=== PATIENT | male | born 1955 | race Caucasian/White ===

== ENCOUNTER → 2018-07-07 11:38 | Outpatient (CLI) | payer SELFPAY ==
[2018-07-07 15:31] LABS: Anion Gap 10 (5-15); BUN 17 mg/dL (7-18); BUN/Creat Ratio 19.3 RATIO (10-20); Calcium,Total 8.8 mg/dL (8.5-10.1); Chloride 102 mmol/L (98-107); Creatinine, Serum 0.88 mg/dL (0.70-1.30); EST Glomerular Filtration Rate 93 mL/min (>60); Est Glom Filt Rate - Afr Amer 112 mL/min (>60); Glucose 132 mg/dL (74-106); Sodium Level 139 mmol/L (136-145)
== END ==
PROVIDERS: Family Provider Family Medicine; PCP Family Medicine; Visit Provider Family Medicine
DX: I10 Essential (primary) hypertension (principal)
CPT/HCPCS: 36415; 80048

== ENCOUNTER 2021-12-01 13:17 | Emergency (ER) | payer MEDICARE, SELFPAY ==
[2021-12-01 13:18] VITALS: BP 239/134; PULSE 102; RESP 18; TEMP 36.6; O2SAT 96; BMI 25.7
[2021-12-01 13:34] VITALS: BP 239/134; PULSE 102; RESP 18; TEMP 36.6; O2SAT 96
--- NOTE | 2021-12-01 13:40 | RAD_ITS ---
STUDY: X-RAY - RIGHT FOOT CLINICAL: Male, 66 years old. Pain TECHNIQUE: 3 view(s) of the foot. COMPARISON: None. FINDINGS: There is a plantar calcaneal spur. Degenerative changes of the tarsal and tarsometatarsal articulations. Normal metatarsi. Normal metatarsophalangeal joint of the great toe. Normal tibial and fibular sesamoid bones. Normal interphalangeal joint of the great toe. Normal phalanges of the great toe. Normal second through fifth metatarsophalangeal joints. Normal interphalangeal joints and phalanges of the lesser toes. The soft tissue structures are unremarkable. RAD/Foot min 3 Views IMPRESSION: Degenerative arthrosis. No demonstrated acute osseous changes. Electronically Signed: Tiago Garza, at 14:47 EST ,
--- NOTE | 2021-12-01 13:53 | EDS_ITS ---
HPI <JALEN MADDOX - Last Filed: 12/01/21 16:02> History of Present Illness Chief Complaint: Lower Extremity Injury Detail of Chief Complaint: Swelling pain in my right foot Informant: patient Onset/Context/Timing Onset: Days (2) Timing: Continuous Current Severity: 02/19 Narrative Narrative: Patient presents secondary to right foot redness, swelling, and pain. Patient states he first noticed these symptoms on , two days ago. States I think I got bit by something. Patient denies fever or chills. Incidentally, the patient also is hypertensive on arrival to ED. Patient is vague concerning his adherence to his home medication for his blood pressure. He states he last took his lisinopril maybe a few days ago, last had it filled a few months ago, and last saw his PCP, Dr. Diaz, 2 years ago. He denies headache, blurred vision, nausea. Prior similar symptoms: No Recent Illness/Hospitalization: No PFSH <JALEN MADDOX - Last Filed: 12/01/21 16:02> PFSH Medical History (Updated 12/01/21 @ 15:[address] Ariadne Andrews MD) HTN (hypertension) Home Medications Azithromycin [Zithromax Z-Lev] 250 mg PO UD #1 box 06/19/14 [Rx Last Taken Unknown] lisinopril 20 mg PO BID #60 tablet 06/19/14 [Rx Last Taken Unknown] cephalexin 500 mg PO Q6 #40 cap 12/01/21 [Rx Last Taken Unknown] sulfamethoxazole-trimethoprim [Bactrim DS] 1 tab PO BID #20 tab 12/01/21 [Rx Last Taken Unknown] Allergy/AdvReac Type Severity Reaction Status Date / Time No Known Allergies Allergy Verified 12/01/21 13:21 Surgical History History of hernia repair Social History (Updated 12/01/21 @ 14:07 by JALEN MADDOX) current occupation: occasional heavy duty truck mechanic Smoking Status: Former smoker alcohol intake: never substance use type: does not use ROS <JALEN MADDOX - Last Filed: 12/01/21 16:02> ROS ED Constitutional Constitutional ED: Denies chills or fever(s) Eyes Eyes: Denies blurry vision, change in vision or diplopia ENT ENT ED: Denies ear pain or sore throat Cardiovascular Cardiovascular: Denies chest pain Respiratory/Chest Respiratory/Chest: Denies dyspnea Gastrointestinal Gastrointestinal: Denies constipation, diarrhea or nausea Genitourinary Genitourinary ED: Denies dysuria Musculoskeletal Musculoskeletal: Reports other Details: Rt foot pain and swelling, worst over the Rt MTP joint. Integumentary Reports other Details: Redness to right foot with dry, flakey skin ascending legs bilaterally. Neurologic Neurologic: Denies headache(s) or weakness EXAM <JALEN TNA - Last Filed: 12/01/21 16:02> Physical Exam Const Vital Signs: 12/01/21 13:18 12/01/21 13:34 12/01/21 14:04 Temperature 98 F 98 F Temperature Source Temporal Temporal Pulse Rate 102 H 102 H Respiratory Rate 18 18 Blood Pressure 239/134 H 239/134 H 202/116 H Blood Pressure Mean 169 169 144 Pulse Ox 96 96 Oxygen Delivery Method Room Air Room Air 12/01/21 15:13 12/01/21 15:45 Temperature Temperature Source Pulse Rate 77 Respiratory Rate 18 Blood Pressure 233/135 H 163/99 H Blood Pressure Mean 167 120 Pulse Ox 94 Oxygen Delivery Method Room Air Positive well nourished and well developed General Appearance ED: well developed HEENT Reports normocephalic and moist mucous membranes Eyes PERRL and EOMs intact bilaterally Resp normal respiratory effort Effort and Inspection: other Auscultation: wheezes lower bilaterally and posterior Cardio regular rate GI normal to inspection, nondistended, normoactive bowel sounds Extremity Right Lower Extremity: foot and digits Positive for inspection (Redness, concentrated most of MTP joint of rt great toe ascending towards ankle and across foot and into toes.), palpation (tender to palpation. ) and neurovascular exam (Sensation intact to feet B/L. 2+ tibial and dorsalis pedis pulses B/L.) Neuro oriented x3 Sensorium / Orientation: alert Sensory Exam: sensory level loss detected Psych mental status grossly normal Skin Skin Narrative: No wounds to right foot. Dry, flakey skin to B/L lower legs. <Dr. Ariadne Andrews MD - Last Filed: 12/01/21 16:00> Physical Exam Const Vital Signs: 12/01/21 13:18 12/01/21 13:34 12/01/21 14:04 Temperature 98 F 98 F Temperature Source Temporal Temporal Pulse Rate 102 H 102 H Respiratory Rate 18 18 Blood Pressure 239/134 H 239/134 H 202/116 H Blood Pressure Mean 169 169 144 Pulse Ox 96 96 Oxygen Delivery Method Room Air Room Air 12/01/21 15:13 12/01/21 15:45 Temperature Temperature Source Pulse Rate 77 Respiratory Rate 18 Blood Pressure 233/135 H 163/99 H Blood Pressure Mean 167 120 Pulse Ox 94 Oxygen Delivery Method Room Air MDM <JALEN MADDOX - Last Filed: 12/01/21 16:02> [facility] MDM Narrative Medical decision making narrative: Lab work and right foot xray ordered. Patient's home blood pressure medication ordered. Lab Data Attestation: I reviewed the patient's lab results. Labs: Laboratory Results - last 24 hr 12/01/21 12/01/21 13:59 13:59 WBC 10.4 RBC 5.01 Hgb 15.8 Hct 45.2 MCV 90.2 MCH 31.5 MCHC 35.0 RDW Std Deviation 41.4 RDW Coeff of Veness[place] 12.5 Plt Count 209 MPV 10.7 Immature Gran % (Auto) 0.400 Neut % (Auto) 71.2 H Lymph % (Auto) 13.8 L [place] % (Auto) 12.9 H Eos % (Auto) 1.1 Baso % (Auto) 0.6 Absolute Neuts (auto) 7.4 Absolute Lymphs (auto) 1.43 Nucleated RBC % 0 Sodium 136 Potassium 3.6 Chloride 101 Carbon Dioxide 27.0 Anion Gap 8 BUN 17 Creatinine 0.72 Estim Creat Clear Calc 67.02 Est GFR (MDRD) Af Amer 139 Est GFR (MDRD) Non-Af 115 BUN/Creatinine Ratio 23.5 H Glucose 107 H Uric Acid 6.7 Calcium 9.0 Radiography Diagnostic Testing: Clinical Impression(s) from Imaging Studies Foot X-Ray 12/01/21 13:40 IMPRESSION: Degenerative arthrosis. No demonstrated acute osseous changes. Electronically Signed: Tiago Garza, at 14:47 EST , Treatment and Re-Evaluation Comments:: On re-evaluation, patient is resting comfortably. Blood pressure remains elevated after oral home medication. Labetolol given and on final re- evaluation blood pressure, 160/104. Lab work is unremarkable with a WBC 10.4 and uric acid at 6.7. Right foot xray shows arthritic changes, but no acute abnormality. Patient treated with bactrim and Keflex for right foot cellulitis. Thorough discussion with patient about the importance of taking prescribed medications and follow-up with Dr. Diaz. Patient verbalizes understanding to call for follow-up appt Friday. <Dr. Ariadne Andrews MD - Last Filed: 12/01/21 16:00> [facility] Lab Data Labs: Laboratory Results - last 24 hr 12/01/21 12/01/21 13:59 13:59 WBC 10.4 RBC 5.01 Hgb 15.8 Hct 45.2 MCV 90.2 MCH 31.5 MCHC 35.0 RDW Std Deviation 41.4 RDW Coeff of Venessa 12.5 Plt Count 209 MPV 10.7 Immature Gran % (Auto) 0.400 Neut % (Auto) 71.2 H Lymph % (Auto) 13.8 L [place] % (Auto) 12.9 H Eos % (Auto) 1.1 Baso % (Auto) 0.6 Absolute Neuts (auto) 7.4 Absolute Lymphs (auto) 1.43 Nucleated RBC % 0 Sodium 136 Potassium 3.6 Chloride 101 Carbon Dioxide 27.0 Anion Gap 8 BUN 17 Creatinine 0.72 Estim Creat Clear Calc 67.02 Est GFR (MDRD) Af Amer 139 Est GFR (MDRD) Non-Af 115 BUN/Creatinine Ratio 23.5 H Glucose 107 H Uric Acid 6.7 Calcium 9.0 Radiography Diagnostic Testing: Clinical Impression(s) from Imaging Studies Foot X-Ray 12/01/21 13:40 IMPRESSION: Degenerative arthrosis. No demonstrated acute osseous changes. Electronically Signed: Tiago Garza, at 14:47 EST , Treatment and Re-Evaluation Comments:: Patient seen and evaluated with [employer] student. Patient independently evaluated and examined. Patient presents with right foot pain and erythema. No open wounds. No fever or chills. No history of gout. Patient does have significantly elevated blood pressure and does admit he did not take his blood pressure medication this morning. On further questioning he reports has not taken in several days and has not filled his prescription and approximately 6 months. Patient sitting upright in bed no acute distress. Head and neck examination unremarkable. Heart is regular rate and rhythm. Lung sounds are clear. Abdomen is soft and nontender. Right lower extremity examination reveals area of erythema centered around the first MTP joint. No open wounds. Good cap refill distally. Lab work obtained and reviewed. Labs are unremarkable. Foot x-ray reviewed by myself reveals no acute findings. Radiology to rotation also reviewed. Patient be treated with Bactrim and Keflex. He was given his lisinopril here but blood pressure remained significantly elevated in the 230s systolic. He was given 10 mg of IV labetalol and repeat blood pressure is 160/100. Patient reports he will take his blood pressure medication and track his blood pressures at home. He will follow-up with Dr. Diaz. Discharge Plan Triage Chief Complaint: Lower Extremity Injury ED Provider: Ariadne Andrews Dx/Rx/DC Orders Clinical Impression: Hypertension, Cellulitis Instructions: ED Cellulitis, ED High Blood Pressure Hypertension Prescriptions: New sulfamethoxazole-trimethoprim [Bactrim DS] 800-160 mg tablet 1 tab PO BID Qty: 20 RF: 0 cephalexin 500 mg capsule 500 mg PO Q6 Qty: 40 RF: 0 No Action lisinopril 20 MG tablet 20 mg PO BID Qty: 60 RF: 0 Azithromycin [Zithromax Z-Lev] 250 MG tablet 250 mg PO UD Qty: 1 RF: 0 Primary Care Provider: Jose Ramon Diaz Referrals: Jose Ramon Daiz MD [Primary Care Provider] - 1-2 Weeks Disposition Disposition: Home, Self Care
[2021-12-01 14:04] VITALS: BP 202/116
[2021-12-01 14:07] LABS: Absolute Lymphocyte Count 1.43 X10^3/uL (0.83-4.51); Absolute Neutrophil Count 7.4 X10^3/uL (2.0-7.7); Basophil# 0.06 X10^3/uL; Basophil% 0.6 % (0-1); Eosinophil# 0.11 X10^3/uL; Eosinophils% 1.1 % (0-5); Hematocrit 45.2 % (40-54); Hemoglobin 15.8 g/dL (13.0-16.5); Lymphocyte # 1.43 X10^3/ul (0.83-4.51); Lymphocyte % 13.8 % (19-41); Mean Corpuscular Hgb 31.5 pg (27.0-32.0); Mean Corpuscular Volume 90.2 fL (80-94); Mean Platelet Vol. 10.7 fl (6.2-12.0); Monocyte# 1.34 X10^3/uL; Monocyte% 12.9 % (0-10); NRBC Flagged by Analyzer 0 % (0-5); Neutrophil # 7.41 X10^3/uL (2.7-7.7); Neutrophil % 71.2 % (47-70); Platelet Count 209 K/mm3 (150-450); RBC Distribution Width CV 12.5 % (11.6-14.6); RBC Distribution Width SD 41.4 fl (35.1-43.9); Red Blood Count 5.01 M/mm3 (4.6-6.2); White Blood Count 10.4 K/mm3 (4.4-11.0)
[2021-12-01] MEDS: Lisinopril 20 MG Tablet PO (14:18)
[2021-12-01 14:20] LABS: Anion Gap 8 (5-15); BUN 17 mg/dL (7-18); BUN/Creat Ratio 23.5 RATIO (10-20); Chloride 101 mmol/L (98-107); Creatinine, Serum 0.72 mg/dL (0.70-1.30); EST Glomerular Filtration Rate 115 mL/min (>60); Est Glom Filt Rate - Afr Amer 139 mL/min (>60); Estimated Creatinine Clearance 67.02 ml/min; Glucose 107 mg/dL (74-106); Potassium 3.6 mmol/L (3.5-5.1); Sodium Level 136 mmol/L (136-145); Uric Acid 6.7 mg/dL (3.5-7.2)
[2021-12-01 15:13] VITALS: BP 233/135
[2021-12-01] MEDS: Cephalexin 250 MG Capsule 500 MG PO (15:17)
[2021-12-01] MEDS: Smz/Tmp Ds Tablet 1 TABLET PO (15:18)
[2021-12-01] MEDS: Labetalol (Prefilled) 20 MG/4 ML 10 MG IV (15:42)
[2021-12-01 15:45] VITALS: BP 163/99; PULSE 77; RESP 18; O2SAT 94
[2021-12-01 16:02] VITALS: BP 160/104
== END 2021-12-01 16:03 | disposition home or self-care (01) ==
PROVIDERS: Emergency Provider Emergency Medicine; PCP Family Medicine; Visit Provider Emergency Medicine
DX: L03.115 Cellulitis of right lower limb (principal); I10 Essential (primary) hypertension; Z79.899 Other long term (current) drug therapy; Z87.891 Personal history of nicotine dependence
CPT/HCPCS: 73630; 80048; 84550; 85025; 99283; A4216

== ENCOUNTER → 2022-10-02 | Outpatient (CLI) | payer MEDICARE, SELFPAY ==
--- NOTE | 2022-10-02 10:45 | RAD_ITS ---
STUDY: X-RAY CHEST REASON FOR EXAM: Male, 66 years old. sob TECHNIQUE: XR Chest 2 Views COMPARISON: 9.614 FINDINGS: There is atherosclerotic calcification of the aortic arch with tortuosity. There are diffuse degenerative changes of the visualized thoracic spine. There is degenerative osteoarthritis of the bilateral shoulders. There are bilateral infiltrates. Normal size heart. Normal mediastinum and amy. Normal visualized pulmonary arteries. There is no demonstrated abnormality of the visualized soft tissue structures of the upper abdomen. RAD/Chest PA and Lateral IMPRESSION: There is bilateral infiltrate. Electronically Signed: Jose Rosa MD at 17:14 EST ,
== END | disposition home or self-care (01) ==
PROVIDERS: PCP Family Medicine; Referring Provider Physician Assistant; Visit Provider Physician Assistant
DX: R06.02 Shortness of breath (principal)
CPT/HCPCS: 71046

== ENCOUNTER 2023-12-25 10:29 | Inpatient (IN) | payer MEDICARE, SELFPAY ==
[2023-12-25] VITALS (28 sets, daily range): BP systolic 167–206; BP diastolic 99–135; PULSE 80–101; RESP 15–22; TEMP 36.5–37.1; O2SAT 91–100; BMI 25.9; BMI 29.9
--- NOTE | 2023-12-25 10:32 | CT_ITS ---
STUDY: CT HEAD STROKE PROTOCOL W/O CONTRAST INJECTION REASON FOR EXAM: Male, 68 years old. Neuro deficit, acute, stroke suspected RADIATION DOSAGE (If Supplied By Facility): CTDIvol = ( 44.99 ) mGy, DLP = ( 846.73 ) mGycm TECHNIQUE: Transaxial CT imaging of the brain was performed without administration of intravenous contrast material. Individualized dose optimization techniques were used for this CT. COMPARISON: No relevant priors. FINDINGS: Normal soft tissue structures. Normal calvarium. There is mild cerebral atrophy with widening of the extra-axial spaces and ventricular dilatation. Focal hypodensity is seen in the insular cortex of the right temporal lobe. Tiny lacunar infarct are seen in both thalami. Age of which cannot be determined on this single examination. Normal brainstem. Normal cerebellum. There is no intracranial hemorrhage. There are no findings of an acute ischemic infarction. Suspected hyperdensity in the right middle cerebral artery. Correlation with CTA recommended. Mild mucosal thickening of the inferior aspect of the right maxillary sinus. ASPECT score: 8 CT/STROKE Brain/Head without Cont IMPRESSION: Chronic involutional changes of the brain. Focal hypodensity is seen in the insular cortex of the right temporal lobe. Findings suggestive of a hyperdense right middle cerebral artery. Correlation with CT recommended. N.B. : The above Results were Read Back by Boaz Willoughby MD to Hunter Gonzáles and understanding confirmed on 12/25/2023 10:49:21 (ET). Electronically Signed: Boaz Willoughby MD at 10:50 EDT ,
--- NOTE | 2023-12-25 10:33 | NURSING ---
NO OLD EKGS
--- NOTE | 2023-12-25 10:34 | RAD_ITS ---
STUDY: X-RAY CHEST REASON FOR EXAM: Male, 68 years old. Neuro deficit, acute, stroke suspected TECHNIQUE: Single AP portable view of the chest. COMPARISON: None. FINDINGS: EKG electrodes are seen. Mild degree of increased linear markings at the lung bases suggestive of bibasilar atelectasis. There is no demonstrated pleural abnormality. Normal size heart. Normal mediastinum and amy. Normal visualized pulmonary arteries. There is atherosclerotic calcification of the aortic arch with tortuosity. There are diffuse degenerative changes of the visualized thoracic spine. There is degenerative osteoarthritis of the bilateral shoulders. There is no demonstrated abnormality of the visualized soft tissue structures of the upper abdomen. RAD/Chest 1 View IMPRESSION: Mild degree of increased signal markings at the lung bases suggestive of bibasilar linear atelectasis. Electronically Signed: Boaz Willoughby MD at 11:23 EDT ,
--- NOTE | 2023-12-25 10:34 | CT_ITS ---
STUDY: CTA HEAD AND NECK WITH CONTRAST REASON FOR EXAM: Male, 68 years old. Neuro deficit, acute, stroke suspected RADIATION DOSAGE (If Supplied By Facility): CTDIvol = ( 21.53 ) mGy, DLP = ( 678.98 ) mGycm TECHNIQUE: CT angiography was performed with a multi-detector CT scanner. Data acquisition was obtained from the skull base through the vertex following intravenous administration of [id number] 100ML. MIP images were reconstructed from the axial data set. Post-processing of the angiographic images was performed, with multiplanar reformation and 3D reconstruction. Individualized dose optimization techniques were used for this CT. COMPARISON: No relevant priors. FINDINGS: Normal bilateral petrous carotid arteries. There is calcified plaque formation of the right cavernous carotid artery, without a cross-sectional luminal stenosis. There is calcified plaque formation of the left cavernous carotid artery, with a mild stenosis (less than 50%). Normal right A1 segments of the anterior cerebral artery. Normal left A1 segments of the anterior cerebral artery. Normal intact anterior communicating artery (ACOM). Normal bilateral A2 segments of the anterior cerebral arteries. There is evidence of atherosclerotic changes in the midportion of the right M2 segment of the middle cerebral artery with possible tiny thrombus. Decreased amount of branches seen in the sylvian fissure. Normal left M1 and M2 segments of the middle cerebral arteries, with a normal M1 bifurcation. Normal right posterior communicating artery (PCOM). Normal left posterior communicating artery (PCOM). Normal bilateral vertebral arteries. Normal basilar artery with a normal basilar bifurcation. The visualized bilateral superior cerebellar (SCA) arteries are normal. Normal bilateral P1, P2 and visualized P3 segments of the posterior cerebral arteries. There is no demonstrated aneurysm of the [place]. AORTIC ARCH: There is atherosclerotic calcific plaque formation of the aortic arch and great vessels arising from the aortic arch, without a hemodynamically significant stenosis. There is a bovine origin of the great vessels with a common origin of the brachiocephalic and left common carotid artery. Normal origin of the left subclavian artery. RIGHT CAROTID ARTERIES: Normal right common carotid artery (CCA). Normal right common carotid bulb. There is mild atherosclerotic plaque formation of the origin of the right internal carotid artery with less than 50% cross sectional diameter stenosis. Normal visualized cervical portion of the right internal carotid artery. Normal origin of the right external carotid artery (ECA). LEFT CAROTID ARTERIES: Normal left common carotid artery (CCA). Normal left common carotid bulb. There is mild atherosclerotic plaque formation of the origin of the left internal carotid artery with less than 50% cross sectional diameter stenosis. Normal visualized cervical portion of the left internal carotid artery. Normal origin of the left external carotid artery (ECA). VERTEBRAL ARTERIES: Normal bilateral vertebral arteries. CT/STROKE CTA Head AND Neck W/Con IMPRESSION: Calcific plaque at the origins of the right and left internal carotid arteries causing less than 50% narrowing. Atherosclerotic changes are seen in the M2 segment of the right middle cerebral artery with a possible tiny thrombus and decreased branches in the right sylvian fissure. N.B. : The above Results were Read Back by Boaz Willoughby MD to Hunter Gonzáles and understanding confirmed on 12/25/2023 11:10:53 (ET). Electronically Signed: Boaz Willoughby MD at 11:12 EDT ,
--- NOTE | 2023-12-25 10:34 | NURSING ---
[facility]2 STOKE ALERT CALLED, ETA 15 MIN
[2023-12-25 10:41] LABS: Basophil# 0.06 X10^3/uL; Eosinophil# 0.84 X10^3/uL; Hematocrit 47.3 % (40-54); Hemoglobin 16.9 g/dL (13.0-16.5); Mean Corp Hgb Conc 35.7 g/dL (32-36); Mean Corpuscular Hgb 31.8 pg (27.0-32.0); Mean Corpuscular Volume 89.1 fL (80-94); Mean Platelet Vol. 11.8 fl (6.2-12.0); Monocyte# 1.35 X10^3/uL; NRBC Flagged by Analyzer 0 % (0-5); POSITIVE MORPHOLOGY YES; Platelet Count 201 K/mm3 (150-450); RBC Distribution Width CV 12.7 % (11.6-14.6); RBC Distribution Width SD 41.8 fl (35.1-43.9); Red Blood Count 5.31 M/mm3 (4.6-6.2); White Blood Count 13.7 K/mm3 (4.4-11.0)
[2023-12-25 10:48] LABS: Differential Indicated SCAN CRITERIA MET
[2023-12-25 10:55] LABS: Prothrombin Time (Protime)PT. 13.6 SECONDS (11.7-14.9)
[2023-12-25 10:56] LABS: Partial Thromboplast Time 30.6 Seconds (24.1-36.2)
--- NOTE | 2023-12-25 11:03 | NURSING ---
FAXED FACESHEET TO [facility]
[2023-12-25 11:06] LABS: Anion Gap 10 (5-15); BUN 15 mg/dL (7-18); BUN/Creat Ratio 16.3 RATIO (10-20); Calcium,Total 9.4 mg/dL (8.5-10.1); Chloride 102 mmol/L (98-107); Creatinine, Serum 0.92 mg/dL (0.70-1.30); EST Glomerular Filtration Rate 87 mL/min (>60); Est Glom Filt Rate - Afr Amer 105 mL/min (>60); Estimated Creatinine Clearance 70.85 ml/min; Glucose 141 mg/dL (74-106); Potassium 3.6 mmol/L (3.5-5.1); Sodium Level 138 mmol/L (136-145); Troponin-I HS 28 pg/mL (3.0-78.0)
[2023-12-25 11:11] LABS: Lymphocyte 10 % (19-41); Monocyte 2 % (0-10); Neutrophil-Segmented 88 % (47-70); Platelet Estimate ADEQUATE (ADEQ); Red Cell Morphology NORM C+C NORMAL (NORM C&C); Scan Smear per Review Criteria MANUAL DIFF; Total Cells Counted 100 (MANUAL DIFF)
[2023-12-25 11:12] LABS: Lymphocyte # 1.37 X10^3/ul (0.83-4.51)
[2023-12-25 11:13] LABS: Absolute Lymphocyte Count 1.37 X10^3/uL (0.83-4.51)
[2023-12-25 11:32] LABS: Blood Gas Specimen Type VEN; O2 Delivery Device Not entered; SITE Not entered; VBG BASE EXCESS 2 mmol/L (-1.0-3.5); VBG Bicarbonate 27 mmol/L (22-26); VBG PO2 61 mmHg (25-40); VBG SO2 91 % (50-70); VBG TCO2 28 mmol/L (23-33); VBG pCO2 43.6 mmHg (41-51); VBG pH 7.39 (7.32-7.42)
[2023-12-25 11:44] LABS: Alcohol, Blood (Medical)-Serum < 3.0 mg/dL
[2023-12-25 13:02] LABS: Amphetamine Urine VISTA NEGATIVE (<1000 ng/mL); Barbiturate Urine VISTA NEGATIVE (< 200 ng/mL); Benzodiazepine Urine VISTA NEGATIVE (< 200 ng/mL); Cocaine Urine VISTA NEGATIVE (< 300 ng/mL); Ecstacy Urine VISTA NEGATIVE (< 500 ng/mL); Methadone Urine VISTA NEGATIVE (< 300 ng/mL); PCP Urine VISTA NEGATIVE (< 25 ng/mL); THC Urine VISTA NEGATIVE (< 50 ng/mL); Vista UDS pH Range 6
--- NOTE | 2023-12-25 13:09 | NURSING ---
HOSPITALIST FOR DR VAZ
--- NOTE | 2023-12-25 13:22 | ED.RN ---
AT 12:30 DR VAZ WAS INFORMED THAT PT HAD DROOP TO LT EYE, AND SPEECH WAS DETERIORATING
--- NOTE | 2023-12-25 13:31 | RAD_ITS ---
STUDY: X-RAY - ABDOMEN/PELVIS REASON FOR EXAM: Male, 68 years old. NG Insertion TECHNIQUE: Single AP view of the abdomen / pelvis. COMPARISON: None. FINDINGS: The tip of the nasogastric tube is in the region of the nasopharynx. RAD/Abdomen Single View (Portable) IMPRESSION: The tip of the nasogastric tube is in the region of the nasopharynx. Electronically Signed: Boaz Willoughby MD at 14:41 EDT ,
--- NOTE | 2023-12-25 13:35 | EX.ED.DYSGE1 ---
HPI History of Present Illness Chief Complaint: Neuro S/Sx [facility] Medical History (Updated 12/25/23 @ 17:24 by Golden Hardwick) Hypertension Medical History unable to obtain Home Medications Unobtainable 12/25/23 [History Last Taken Unknown] Allergy/AdvReac Type Severity Reaction Status Date / Time No Known Allergies Allergy Verified 12/25/23 10:40 Family History (Updated 12/25/23 @ 13:[address] Ozzie Abreu MD) Other Diabetes Heart disease Family History unable to obtain Surgical History unable to obtain Social History Smoking Status: Unknown if ever smoked EXAM Physical Exam Const Vital Signs: 12/25/23 10:30 12/25/23 10:34 12/25/23 10:34 Temperature 97.9 F Temperature Source Temporal Pulse Rate 101 H 90 Respiratory Rate 18 18 Blood Pressure 198/135 H 199/110 H Blood Pressure Mean 156 139 Pulse Ox 97 95 Oxygen Delivery Method Room Air Room Air Room Air Oxygen Flow Rate (L/min) 12/25/23 10:45 12/25/23 10:51 12/25/23 10:58 Temperature 98 F Temperature Source Temporal Pulse Rate 90 89 90 Respiratory Rate 18 18 18 Blood Pressure 193/110 H 193/110 H 188/108 H Blood Pressure Mean 137 137 134 Pulse Ox 96 91 96 Oxygen Delivery Method Room Air Room Air Nasal Cannula Oxygen Flow Rate (L/min) 2 12/25/23 11:04 12/25/23 11:30 12/25/23 11:30 Temperature Temperature Source Pulse Rate 90 90 90 Respiratory Rate 18 16 18 Blood Pressure 188/108 H 188/108 H 188/108 H Blood Pressure Mean 134 134 134 Pulse Ox 97 98 97 Oxygen Delivery Method Nasal Cannula Nasal Cannula Nasal Cannula Oxygen Flow Rate (L/min) 3 3 12/25/23 12:00 12/25/23 12:00 12/25/23 12:30 Temperature Temperature Source Pulse Rate 90 90 88 Respiratory Rate 20 H 20 H 20 H Blood Pressure 205/110 H 205/110 H 189/120 H Blood Pressure Mean 141 141 143 Pulse Ox 96 96 94 Oxygen Delivery Method Nasal Cannula Room Air Nasal Cannula Oxygen Flow Rate (L/min) 12/25/23 13:00 12/25/23 13:00 Temperature Temperature Source Pulse Rate 88 88 Respiratory Rate 18 18 Blood Pressure 189/122 H 189/122 H Blood Pressure Mean 144 144 Pulse Ox 99 99 Oxygen Delivery Method Room Air Nasal Cannula Oxygen Flow Rate (L/min) 3 [facility] MDM Narrative Medical decision making narrative: HISTORY OF PRESENT ILLNESS: 68-year-old male presents with concern for acute stroke. Was paged out as a stroke team per EMS. Patient was found down. Last meal was 930 on 12/23/2022. There is no report of blood thinners. Patient is altered and has difficulty communicating secondary to strokelike symptoms and does not provide elaborate history. REVIEW OF SYSTEMS: Unable to provide elaborate history secondary to mental status change PHYSICAL EXAM: Nursing triage notes reviewed, Vital signs reviewed Constitutional: please see mdm HENT: MMM Eyes: Pupils equal round and reactive to light, Extraocular muscles intact, no gaze deviation Neck: No stridor, no JVD, full neck ROM Lungs: Clear to auscultation, No wheezing or rales. Slight increased work of breathing, Heart: Regular rate and rhythm, No murmurs, No rubs and No gallops, 2+ distal pulses (radial, femoral, posterior tibial) in all extremities Abdomen: Soft, there is no tenderness, rigidity, rebound or guarding, no obvious peritoneal signs, no palpable pulsatile abdominal masses, no auscultated abdominal bruit : No CVAT Extremities: No edema Neuro: Somnolent, aphasic, dysarthric, right-sided facial droop, right-sided upper extremity drift, intact sensation, no obvious neglect, NIH of 10 (facial droop, inability to follow commands, dysarthria, aphasia, right upper extremity drift) Skin: No rash or lesions noted MEDICAL DECISION MAKING: Chief Complaint: Stroke team External records reviewed: Factors affecting care: History of hypertension Social determinants of health: none History obtained from others: none Consults: Stroke neurology (Dr. Cook), hospitalist (Dr. Abreu) [facility] Narrative: Patient was initially hypertensive, remained hemodynamically stable was somnolent and tachypnea/increased work of breathing had clear lungs no smell of alcohol The patient was not a TNK candidate given last known well greater than 4 and half hours prior to arrival. I considered the following differential diagnosis: ICH, CVA, focal seizure, TIA, Jered's paralysis Given patient was in the thrombectomy window he was taken directly to CT scanner undergo a CT scan of the head without contrast as well as a CTA head neck. Consult to stroke neurology who recommended no TNK or transport to undergo emergent thrombectomy given there is no obvious large vessel occlusion on stat CTA. Neurology did recommend placing an NG tube given concern for swallowing to facilitate giving Plavix. Discussed with hospitalist Dr. Abreu who agreed admit the patient to the intensive care unit ALL IMAGES (IF OBTAINED) HAVE BEEN PERSONALLY REVIEWED AND INTERPRETED BY MYSELF. Noncon CT of the brain shows no acute hemorrhage CTA of the head and neck noted no large vessel occlusion but did note possible tiny thrombus in the M2 segment of the right middle cerebral artery this was discussed personally with the radiologist Dr. Willoughby who reiterated there is no obvious large vessel occlusion. This was further discussed with the stroke neurologist Dr. Cook who recommended against emergent thrombectomy. I have personally reviewed the patient's chest x-ray. Chest x-ray is unremarkable for pulmonary edema, pneumothorax, pneumonia or focal cardiopulmonary abnormality. CBC with leukocytosis suggestive of systemic infection, no anemia thrombocytopenia No coagulopathy VBG without significant CO2 retention and respiratory acidosis BMP without evidence of significant electrolyte abnormalities, no anion gap, no acute kidney injury. High-sensitivity troponin is negative, no evidence of myocardial ischemia Urine drug screen negative Serum alcohol negative EKG with normal sinus rhythm, left activation, no STEMI, no A-fib Per the patient's family there is no report of bleeding diathesis. The synthesis of the patient's history, physical exam, labs images suggest acute CVA. Patient was not a candidate for TNK or thrombectomy. Patient was given dual antiplatelet therapy per stroke neurology recommendations admitted under the hospitalist for further stroke evaluation, MRI and risk factor modification. The patient and/or family, caregivers express understanding. The patient and/or family, caregivers agrees with the plan. Shared decision making: I will have a discussion with the patient and or visitors regarding risk/benefits of further testing or admission. They will be made aware of of the risk/benefits inherent in this decision they will be given the opportunity to voice understanding. Total critical care time today provided was at least 60 minutes. This excludes separately billable procedures. Critical care time (if documented) is secondary to the patient having high probability of clinically significant/life threatening deterioration in the patient's condition which required my urgent intervention. Impression: 1. Acute CVA Dispo: Admit to ICU This note was generated with Roxie dictation software. It may contain incorrect words, spelling, and punctuation that were not noted in review of the chart prior to signing. Lab Data Labs: Laboratory Results - last 24 hr 12/25/23 12/25/23 12/25/23 10:18 11:15 12:30 WBC 13.7 H RBC 5.31 Hgb 16.9 H Hct 47.3 MCV 89.1 MCH 31.8 MCHC 35.7 RDW Std Deviation 41.8 RDW Coeff of Venessa 12.7 Plt Count 201 MPV 11.8 Immature Gran % (Auto) COMPLAINT EVALUATION OFFICER Neut % (Auto) COMPLAINT EVALUATION OFFICER Lymph % (Auto) COMPLAINT EVALUATION OFFICER [place] % (Auto) COMPLAINT EVALUATION OFFICER Eos % (Auto) COMPLAINT EVALUATION OFFICER Baso % (Auto) COMPLAINT EVALUATION OFFICER Absolute Neuts (auto) 12.0 H Absolute Lymphs (auto) 1.37 Total Counted 100 Neutrophils % (Manual) 88 H Lymphocytes % (Manual) 10 L Monocytes % (Manual) 2 Nucleated RBC % 0 Platelet Estimate ADEQUATE RBC Morphology NORM C+C PT 13.6 INR 1.0 APTT 30.6 Sodium 138 Potassium 3.6 Chloride 102 Carbon Dioxide 26.0 Anion Gap 10 BUN 15 Creatinine 0.92 Estim Creat Clear Calc 70.85 Est GFR (MDRD) Af Amer 105 Est GFR (MDRD) Non-Af 87 BUN/Creatinine Ratio 16.3 Glucose 141 H Calcium 9.4 Troponin I High Sens 28 Urine Opiates Screen NEGATIVE Urine Methadone Screen NEGATIVE Ur Barbiturates Screen NEGATIVE Ur Phencyclidine Scrn NEGATIVE Ur Amphetamines Screen NEGATIVE MDMA (Ecstasy) Screen NEGATIVE U Benzodiazepines Scrn NEGATIVE Urine Cocaine Screen NEGATIVE U Cannabinoids Screen NEGATIVE Ur Drug Screen Comment Ethyl Alcohol < 3.0 ABG Data ABG results: ABG 12/25/23 11:28 Specimen Type MAI Sample Site Not entered VBG pH 7.39 VBG pO2 61 H VBG HCO3 27 H VBG Total CO2 28 VBG O2 Sat (Calc) 91 H VBG Base Excess 2 POC Mix VBG pCO2 Pt Tmp 43.6 O2 Delivery Device Not entered Radiography Diagnostic Testing: Clinical Impression(s) from Imaging Studies Brain CT 12/25/23 10:32 IMPRESSION: Chronic involutional changes of the brain. Focal hypodensity is seen in the insular cortex of the right temporal lobe. Findings suggestive of a hyperdense right middle cerebral artery. Correlation with CT recommended. N.B. : The above Results were Read Back by Boaz Willoughby MD to Hunter Gonzáles and understanding confirmed on 12/25/2023 10:49:21 (ET). Electronically Signed: Boaz Willoughby MD at 10:50 EDT , ADDENDUM: 12/25/23 1057 IMPRESSION: Chronic involutional changes of the brain. Focal hypodensity is seen in the insular cortex of the right temporal lobe. Findings suggestive of a hyperdense right middle cerebral artery. Correlation with CT recommended. N.B. : The above Results were Read Back by Boaz Willoughby MD to Hunter Gonzáles and understanding confirmed on 12/25/2023 10:49:21 (ET). Electronically Signed: Boaz Willoughby MD at 10:50 EDT , Chest X-Ray 12/25/23 10:34 IMPRESSION: Mild degree of increased signal markings at the lung bases suggestive of bibasilar linear atelectasis. Electronically Signed: Boaz Willoughby MD at 11:23 EDT , Head/Neck CTA 12/25/23 10:34 IMPRESSION: Calcific plaque at the origins of the right and left internal carotid arteries causing less than 50% narrowing. Atherosclerotic changes are seen in the M2 segment of the right middle cerebral artery with a possible tiny thrombus and decreased branches in the right sylvian fissure. N.B. : The above Results were Read Back by Boaz Willoughby MD to Hunter Gonzáles and understanding confirmed on 12/25/2023 11:10:53 (ET). Electronically Signed: Boaz Willoughby MD at 11:12 EDT , ADDENDUM: 12/25/23 1119 IMPRESSION: Calcific plaque at the origins of the right and left internal carotid arteries causing less than 50% narrowing. Atherosclerotic changes are seen in the M2 segment of the right middle cerebral artery with a possible tiny thrombus and decreased branches in the right sylvian fissure. N.B. : The above Results were Read Back by Boaz Willoughby MD to Hunter Gonzáles and understanding confirmed on 12/25/2023 11:10:53 (ET). Electronically Signed: Boaz Willoughby MD at 11:12 EDT , KUB X-Ray 12/25/23 13:31 IMPRESSION: The tip of the nasogastric tube is in the region of the nasopharynx. Electronically Signed: Boaz Willoughby MD at 14:41 EDT , Discharge Plan Disposition Disposition: Acute Care Hospital [facility] Discharge Date/Time: 12/25/23 15:42
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
--- NOTE | 2023-12-25 14:01 | NURSING ---
ICU [facility] ACUTE CVA
[2023-12-25] MEDS: Aspirin 300 MG Suppository RC (14:56)
--- NOTE | 2023-12-25 14:58 | ED.RN ---
Failed NG placement x3 attempts. Dr. Eliecer rosario, given 300 mg Recal aspirin
[2023-12-25] MEDS: Labetalol (Prefilled) 20 MG/4 ML IV (15:13)
--- NOTE | 2023-12-25 15:58 | ECHOCS_ITS ---
Version 2 Reason For Study: TIA/CVA Procedure This was a 2D Doppler, Color Flow transthoracic echocardiogram. Contrast injection was performed. Exam performed portable in ICU/CCU. Left Ventricle Normal size and thickness. The left ventricular ejection fraction is 70 %. Diastolic function is indeterminate. Right Ventricle Normal right ventricle. Atria The left atrium is mildly enlarged. Normal right atrium. Bubble study nondiagnostic for shunts. Mitral Valve Severe mitral annular calcification. Trivial mitral valve insufficiency. Tricuspid Valve Normal tricuspid valve. Aortic Valve Mild diffuse aortic valve calcification. Mild aortic stenosis. Pulmonic Valve The pulmonic valve is not well visualized. Great Vessels Normal sized aortic root. Pericardium/Pleural No pericardial effusion. Medication Performed a rapid injection of agitated mix of 9 cc saline and 1cc air to assess for atrial septal defect. Diluted definity 2ml given slow IV push to enhance endocardial definition. MMode/2D Measurements & Calculations LVIDd: 4.3 cm IVSd: 1.1 cm LVOT diam: 2.0 cm LVIDs: 3.4 cm LVPWd: 1.1 cm RVDd: 3.3 cm FS: 20.1 % LVOT area: 3.2 cm2 Ao root diam: 3.0 cm LAV(MOD-bp): 45.1 ml LVAd ap4: 25.7 cm2 LAV(MOD-bp) Indexed: 24.2 ml/m2 LVLd ap4: 7.4 cm LAV(MOD-sp2): 45.8 ml EDV(MOD-sp4): 71.6 ml LAV(MOD-sp4): 40.1 ml EDV(sp4-el): 75.3 ml LVAs ap4: 14.1 cm2 LVLs ap4: 6.1 cm ESV(MOD-sp4): 27.0 ml ESV(sp4-el): 27.9 ml EF(MOD-sp4): 62.2 % EF(sp4-el): 63.0 % SV(MOD-sp4): 44.5 ml SV(sp4-el): 47.4 ml LA A4 area: 14.8 cm2 LA dimension(2D): 4.1 cm RA A4 area: 10.8 cm2 TAPSE: 2.8 cm Time Measurements MV dec time: 0.31 sec Doppler Measurements & Calculations MV E max kyaw: 111.4 cm/sec Lat Peak E' Kyaw: 6.4 cm/sec Med Peak E' Kyaw: 8.4 cm/sec MV A max kyaw: 171.3 cm/sec E/E' lat: 17.4 E/E' med: 13.3 MV E/A: 0.65 MV V2 max: 234.3 cm/sec MV dec slope: 354.9 cm/sec2 Ao V2 max: 231.6 cm/sec MV max P.0 mmHg Ao max P.5 mmHg MV V2 mean: 138.8 cm/sec Ao V2 mean: 180.5 cm/sec MV mean P.0 mmHg Ao mean P.9 mmHg MV V2 VTI: 35.9 cm Ao V2 VTI: 38.1 cm MVA(VTI): 2.4 cm2 AV (velocity ratio): 0.71 TONYA(I,D): 2.3 cm2 TONYA(V,D): 2.1 cm2 LV V1 max: 151.8 cm/sec SV(LVOT): 85.8 ml PA V2 max: 113.8 cm/sec LV V1 max P.2 mmHg LV V1 mean P.3 mmHg LV V1 mean: 122.2 cm/sec LV V1 VTI: 27.0 cm ECHO/Echo Complete W/ Contrast Interpretation Summary The left ventricular ejection fraction is 70 %. Diastolic function is indeterminate. The left atrium is mildly enlarged. Severe mitral annular calcification. Mild diffuse aortic valve calcification. Mild aortic stenosis. Bubble study nondiagnostic for shunts. Ordering Physician: Ozzie Abreu Referring Physician: Jose Ramon Diaz Performed By: Debora Tabor, FERCHO, RVT
[2023-12-25] MEDS: 0.9% Normal Saline (1000mL) 1,000 ML 75 ML IV (17:52)
[2023-12-25] MEDS: Ampicillin/Sulbactam 3 GM in 0.9% Normal Saline (100mL MB+) 100 ML IV ×2 (17:56→21:55)
[2023-12-25] MEDS: Atropine Sulfate 1% 2 ml Bottle 2 DRP PO (21:00)
[2023-12-25] MEDS: Menthol/Lanolin/Calamine/Znox 113 GM Tube 1 APPLIC TOPICAL (21:56)
[2023-12-26] VITALS (29 sets, daily range): BP systolic 147–228; BP diastolic 92–131; PULSE 81–109; RESP 16–28; TEMP 36.3–36.6; O2SAT 90–100; BMI 29.9
[2023-12-26] MEDS: hydrALAZINE 20 MG/ML Vial 5 MG IV ×4 (01:05→22:56)
[2023-12-26 04:32] LABS: Cholesterol 136 mg/dL (200); High Density Lipoprotein 22 mg/dL; Triglycerides 342 mg/dL; Very Low Density Lipoprotein 68 mg/dL (5-40)
[2023-12-26] MEDS: Menthol/Lanolin/Calamine/Znox 113 GM Tube 1 APPLIC TOPICAL ×3 (05:54→20:40)
[2023-12-26] MEDS: 0.9% Normal Saline (1000mL) 1,000 ML 75 ML IV ×2 (05:55→23:01)
[2023-12-26] MEDS: Ampicillin/Sulbactam 3 GM in 0.9% Normal Saline (100mL MB+) 100 ML IV ×3 (05:56→20:41)
--- NOTE | 2023-12-26 06:49 | PCM.PN.HOSP ---
Reason for Visit Reason for Visit: Diagnoses Cerebral infarction, unspecified (12/25/23) Subjective Subjective Still with trouble speaking. Objective Data Objective Data Vital Signs: Vital Signs Temp Pulse Resp BP Pulse Ox O2 Del Method O2 Flow Rate 36.6 C 91 22 H 228/131 H 96 Nasal Cannula 1 12/26/23 05:00 12/26/23 06:21 12/26/23 06:00 12/26/23 06:21 12/26/23 06:00 12/26/23 06:00 12/26/23 06:00 Oxygen Flow Rate (L/min) 1 Oxygen Delivery Method Nasal Cannula Weight: 89.5 kg Body Mass Index (BMI) 29.9 Intake & Output: Intake and Output for Last 24 Hours 12/24/23 12/25/23 12/26/23 23:59 23:59 23:59 Intake Total 527.75 / 527.75 657.00 / 657.00 Output Total 250 / 250 Balance 527.75 / 527.75 407.00 / 407.00 Lab / Micro Data 12/25/23 10:18 12/25/23 10:18 Labs: Laboratory Results - last 24 hr 12/25/23 10:18: WBC 13.7 H, RBC 5.31, Hgb 16.9 H, Hct 47.3, MCV 89.1, MCH 31.8, MCHC 35.7, RDW Std Deviation 41.8, RDW Coeff of Venessa 12.7, Plt Count 201, MPV 11.8, Immature Gran % (Auto) [employer], Neut % (Auto) [employer], Lymph % (Auto) [employer], [place] % (Auto) [employer] INSPECTOR, Eos % (Auto) [employer] INS[employer]OR, Baso % (Auto) [employer], Absolute Neuts (auto) 12.0 H, Absolute Lymphs (auto) 1.37, Total Counted 100, Neutrophils % (Manual) 88 H, Lymphocytes % (Manual) 10 L, Monocytes % (Manual) 2, Nucleated RBC % 0, Platelet Estimate ADEQUATE, RBC Morphology NORM C+C, PT 13.6, INR 1.0, APTT 30.6, Sodium 138, Potassium 3.6, Chloride 102, Carbon Dioxide 26.0, Anion Gap 10, BUN 15, Creatinine 0.92, Estim Creat Clear Calc 70.85, Est GFR (MDRD) Af Amer 105, Est GFR (MDRD) Non-Af 87, BUN/Creatinine Ratio 16.3, Glucose 141 H, Calcium 9.4, Troponin I High Sens 28 12/25/23 11:15: Ethyl Alcohol < 3.0 12/25/23 12:30: Urine Opiates Screen NEGATIVE, Urine Methadone Screen NEGATIVE, Ur Barbiturates Screen NEGATIVE, Ur Phencyclidine Scrn NEGATIVE, Ur Amphetamines Screen NEGATIVE, MDMA (Ecstasy) Screen NEGATIVE, U Benzodiazepines Scrn NEGATIVE, Urine Cocaine Screen NEGATIVE, U Cannabinoids Screen NEGATIVE, Ur Drug Screen Comment 12/26/23 04:10: Triglycerides 342 H, Cholesterol 136, LDL Cholesterol 46, VLDL Cholesterol 68 H, HDL Cholesterol 22 L ABG Data ABG results: ABG 12/25/23 11:28 Specimen Type MAI Sample Site Not entered VBG pH 7.39 VBG pO2 61 H VBG HCO3 27 H VBG Total CO2 28 VBG O2 Sat (Calc) 91 H VBG Base Excess 2 POC Mix VBG pCO2 Pt Tmp 43.6 O2 Delivery Device Not entered Radiography Diagnostic Testing: Radiology Impression Brain CT 12/25/23 10:32 IMPRESSION: Chronic involutional changes of the brain. Focal hypodensity is seen in the insular cortex of the right temporal lobe. Findings suggestive of a hyperdense right middle cerebral artery. Correlation with CT recommended. N.B. : The above Results were Read Back by Boaz Willoughby MD to Hunter Gonzáles and understanding confirmed on 12/25/2023 10:49:21 (ET). Electronically Signed: Boaz Willoughby MD at 10:50 EDT , ADDENDUM: 12/25/23 1057 IMPRESSION: Chronic involutional changes of the brain. Focal hypodensity is seen in the insular cortex of the right temporal lobe. Findings suggestive of a hyperdense right middle cerebral artery. Correlation with CT recommended. N.B. : The above Results were Read Back by Boaz Willoughby MD to Hunter Gonzáles and understanding confirmed on 12/25/2023 10:49:21 (ET). Electronically Signed: Boaz Willoughby MD at 10:50 EDT , Chest X-Ray 12/25/23 10:34 IMPRESSION: Mild degree of increased signal markings at the lung bases suggestive of bibasilar linear atelectasis. Electronically Signed: Boaz Willoughby MD at 11:23 EDT , Head/Neck CTA 12/25/23 10:34 IMPRESSION: Calcific plaque at the origins of the right and left internal carotid arteries causing less than 50% narrowing. Atherosclerotic changes are seen in the M2 segment of the right middle cerebral artery with a possible tiny thrombus and decreased branches in the right sylvian fissure. N.B. : The above Results were Read Back by Boaz Willoughby MD to Hunter Gonzáles and understanding confirmed on 12/25/2023 11:10:53 (ET). Electronically Signed: Boaz Willoughby MD at 11:12 EDT , ADDENDUM: 12/25/23 1119 IMPRESSION: Calcific plaque at the origins of the right and left internal carotid arteries causing less than 50% narrowing. Atherosclerotic changes are seen in the M2 segment of the right middle cerebral artery with a possible tiny thrombus and decreased branches in the right sylvian fissure. N.B. : The above Results were Read Back by Boaz Willoughby MD to Hunter Gonzáles and understanding confirmed on 12/25/2023 11:10:53 (ET). Electronically Signed: Boaz Willoughby MD at 11:12 EDT , KUB X-Ray 12/25/23 13:31 IMPRESSION: The tip of the nasogastric tube is in the region of the nasopharynx. Electronically Signed: Boaz Willoughby MD at 14:41 EDT , Physical Exam Narrative follows commands. dysarthric, though able to tell me his first and last name. Tells me he feels ok. When asked where he says you tell me Const alert HEENT head/scalp atraumatic Resp normal respiratory effort, no retractions, no use of accessory muscles and clear to auscultation bilaterally Cardio regular rate, regular rhythm, S1 normal heart sound and S2 normal heart sound GI normal to inspection, nondistended, normoactive bowel sounds Neuro Sensorium / Orientation: awake and alert Assessment & Plan Assessment/Plan (1) Acute CVA (cerebrovascular accident): PLAN: Plan Acute CVA Atherosclerotic M2 segment of R MCA w possible tiny thrombus and decreased branches of the right sylvian fissure. MRI shows a moderate acute infact of the left BG Seen by [facility] teleneurology 12/24: did not recommend thrombectomy nor TNK. Recommending to start DAPT w ASA and clopidogrel and statin. Check echo. Consult PT OT ST. Last known normal at 2030 on 12/23, found abnormal at 0900 on 12/24 where he was confused and with dysarthria. While NPO and without current means of administering via NG/GT, continue w rectal ASA. Neurology reeval pending. Dysphagia/Dysarthria 2/2 CVA NGT unable to be placed. ST to see. Cannot rule need for PEG IVF while NPO. Hypertensive urgency permissive post CVA PRN labetolol and hydralazine. Possible aspiration found with emesis on face, borderline oxygen at home. on amp/SB DVT: SCDs Given elevated BP and CVA will maintain ICU status for now. Disposition: TBD. Anticipate pt will require acute rehab. Charges/Coding Visit Charges Inpatient E&M: 14899 Subs Hosp L3
--- NOTE | 2023-12-26 08:50 | MRI_ITS ---
We are attempting to reach an attending provider to discuss findings. An addendum with communication details will be sent when the communication is complete. STUDY: MRI BRAIN WITHOUT CONTRAST REASON FOR EXAM: Male, 68 years old. cva TECHNIQUE: Standardized multiplanar fat and water weighted pulse sequences were obtained. COMPARISON: Head CT dated December 25, 2023 FINDINGS: A moderate size acute infarct is present in the left putamen, subinsular cortex, as well as superior aspect of the caudate nucleus and adjacent periventricular white matter. There is mild cerebral atrophy with widening of the extra-axial spaces and ventricular dilatation. There are a limited number of small white matter hyperintensities, distributed throughout the deep white matter tracts of the cerebral hemispheres, consistent with mild chronic white matter ischemic changes. Normal T2* images of the brain without demonstrated susceptibility artifact. There is no demonstrated hemosiderin stain. Normal bilateral basal ganglia. Normal thalami. There is no extra-axial fluid accumulation. Normal flow voids within the major intracranial circulation suggesting patency by spin echo criteria. Normal sella turcica, pituitary gland, infundibular stalk, optic chiasm and hypothalamus. Normal tectal plate and pineal gland. Normal midbrain, dana and medulla. Normal cerebellum. Normal basal cisterns. Normal bilateral temporal bones. Normal bilateral internal auditory canals. No demonstrated orbital abnormality, within the constraints of a routine brain study. Normal visualized paranasal sinuses. Normal calvarium and skull base. Normal visualized soft tissue structures. Normal visualized upper cervical spine. MRI/Brain without Contrast IMPRESSION: Moderate size acute infarct of the left basal ganglia 1. A moderate size acute infarct is present in the left putamen, subinsular cortex, as well as superior aspect of the caudate nucleus and adjacent periventricular white matter. Electronically Signed: Eleazar Campbell MD at 9:44 EDT ,
--- NOTE | 2023-12-26 10:56 | CASEMGMT ---
RN JESICA Assessment Face to Face with patient for initial transition planning/care coordination assessment. Pt is currently confused and cannot answer this RN JESICA questions accordingly. TC to pt sister on file, Estefani at this time. Estefani agrees to answering this RN JESICA questions. RN JESICA introduced self and role at [facility]. Care providers, pharmacy, and demographics verified. Admitting dx: CVA with AMS LACE Strata: 1 PCP: Jose Ramon Diaz Specialists: Denies Preferred Pharmacy: [facility] Insurance: [facility] A/B Prescription Benefit: Pt is unsure of this. Will follow for Rx costs. LNOK: Estefani Padilla (Sister), Juwan Butler (friend) Living Arrangements: Pt lives alone in a double wide trailer with 3 steps to enter with a handrail. ADLs/IADLs: Pt sister states the pt is normally ind Transportation: Pt drives. Pt friend and [address] DME: [employer] but does not normally use. Pt sister is unaware of any other DME uses or needs at this time. HHC/SNF: Denies history Plan: TBD. PT, OT, ST everals are pending. Pt is currently A&O to self. Pt may qualify for HHC or SNF. CM/ SW to follow pt progression during stay. CM to follow for medication costs and safe DC from [facility]. Javy Hubbard RN, CM
[2023-12-26] MEDS: Labetalol (Prefilled) 20 MG/4 ML IV ×3 (11:05→23:55)
[2023-12-26] MEDS: Aspirin 300 MG Suppository RC (14:33)
--- NOTE | 2023-12-26 14:48 | CON.PCM.NE_ITS ---
Assessment and Plan: Neuro Assessment/Plan IMER TORRES is a 68 M with a past medical history of HTN being evaluated by Teleneurology for acute right sided weakness with slurred speech and facial droop. Diagnosis: Acute L subcortical ischemic stroke - Stroke etiology is cryptogenic, patient requires ESUS workup up Plan: 1. 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 High intensity atorvastatin for secondary stroke prevention (Check LDL with goal <70), HgA1C level 3. TTE completed with EF of 70%, no embolic source. Recommend KATHERYN +/- LOOP recorder or at least 30 days event monitor 4. PT/OT/SKIVER MACHINE evaluation 5. Stroke education 6. Vascular risk factors modification 7. Ok for chemical DVT ppx 8. Target normotension I personally attended this patient and spent a total time of 71 minutes evaluating this patient including clinical assessment, review of chart, medical history imaging, and determining appropriate treatment and workup. HPI Consult Data Date of Consult: 12/26/23 HPI Narrative HPI Narrative: IMER TORRES, is a 68 M with a hx of HTN who presented with LKW at 18:00 on 12/24/23. He was found by his family not answering questions with slurred speech and right sided weakness. CTH was done and showed hypodensity in the L cerebral hemisphere. He did not receive lytics as outside the window. CTA revealed calcified R and L ICA causing <50% narrowing, there was advanced atherosclerotic changes in R M2 of MCA with severe narrowing, ?thrombus. Brain MRI showed an ac simran L subcortical hemispheric infarction. Teleneurology was consulted [facility] Medical History (Updated 12/25/23 @ 17:24 by Golden Hardwick) Hypertension Medical History unable to obtain Home Medications Unobtainable 12/25/23 [History Last Taken Unknown] Allergy/AdvReac Type Severity Reaction Status Date / Time No Known Allergies Allergy Verified 12/25/23 10:40 Family History (Updated 12/25/23 @ 13:[address] Ozzie Abreu MD) Other Diabetes Heart disease Family History unable to obtain Surgical History no surgical history Social History Smoking Status: Unknown if ever smoked Vital Signs Vital Signs Vital Signs: 12/25/23 15:07 12/25/23 15:25 12/25/23 15:30 Temperature 98.8 F Temperature Source Pulse Rate 98 80 81 Pulse Strength Respiratory Rate 18 18 17 Respiratory Effort Respiratory Depth Respiratory Pattern Blood Pressure 204/109 H 174/110 H 167/107 H Blood Pressure [BP] Blood Pressure Mean 140 131 127 Blood Pressure Mean [BP] Blood Pressure Source Blood Pressure Source [BP] Blood Pressure Position Blood Pressure Position [BP] Blood Pressure Location Blood Pressure Location [BP] Pulse Ox 93 93 93 Oxygen Delivery Method Nasal Cannula Nasal Cannula Oxygen Flow Rate (L/min) 4 4 12/25/23 15:50 12/25/23 16:00 12/25/23 16:00 Temperature 97.7 F L Temperature Source Temporal Pulse Rate 82 Pulse Strength Respiratory Rate 18 Respiratory Effort Normal Non-Labored Respiratory Depth Normal Respiratory Pattern Normal Blood Pressure 179/118 H Blood Pressure [BP] Blood Pressure Mean 138 Blood Pressure Mean [BP] Blood Pressure Source Monitor Blood Pressure Source [BP] Blood Pressure Position Semi-Fowlers Blood Pressure Position [BP] Blood Pressure Location Right Arm Blood Pressure Location [BP] Pulse Ox 94 94 94 Oxygen Delivery Method Nasal Cannula Nasal Cannula Nasal Cannula Oxygen Flow Rate (L/min) 4 3 3 12/25/23 16:15 12/25/23 16:30 12/25/23 16:45 Temperature Temperature Source Pulse Rate 82 81 83 Pulse Strength Respiratory Rate 15 20 H 19 H Respiratory Effort Respiratory Depth Respiratory Pattern Blood Pressure 177/114 H 173/107 H 199/99 H Blood Pressure [BP] Blood Pressure Mean 135 129 132 Blood Pressure Mean [BP] Blood Pressure Source Monitor Monitor Monitor Blood Pressure Source [BP] Blood Pressure Position Semi-Fowlers Semi-Fowlers Semi-Fowlers Blood Pressure Position [BP] Blood Pressure Location Right Arm Right Arm Right Arm Blood Pressure Location [BP] Pulse Ox 95 94 94 Oxygen Delivery Method Nasal Cannula Nasal Cannula Nasal Cannula Oxygen Flow Rate (L/min) 3 3 3 12/25/23 17:00 12/25/23 17:43 12/25/23 18:00 Temperature Temperature Source Pulse Rate 85 84 Pulse Strength Respiratory Rate 20 H 17 17 Respiratory Effort Non-Labored Respiratory Depth Respiratory Pattern Blood Pressure 178/108 H 167/112 H Blood Pressure [BP] Blood Pressure Mean 131 130 Blood Pressure Mean [BP] Blood Pressure Source Monitor Monitor Blood Pressure Source [BP] Blood Pressure Position Semi-Fowlers Semi-Fowlers Blood Pressure Position [BP] Blood Pressure Location Right Arm Right Arm Blood Pressure Location [BP] Pulse Ox 95 92 93 Oxygen Delivery Method Nasal Cannula Nasal Cannula Nasal Cannula Oxygen Flow Rate (L/min) 3 2 2 12/25/23 18:43 12/25/23 20:00 12/25/23 21:00 Temperature 97.8 F Temperature Source Temporal Pulse Rate 88 87 84 Pulse Strength Respiratory Rate 15 19 H 20 H Respiratory Effort Respiratory Depth Respiratory Pattern Blood Pressure 176/116 H 178/116 H Blood Pressure [BP] 192/120 H Blood Pressure Mean 136 136 Blood Pressure Mean [BP] 144 Blood Pressure Source Monitor Monitor Blood Pressure Source [BP] Monitor Blood Pressure Position Semi-Fowlers Semi-Fowlers Blood Pressure Position [BP] Semi-Fowlers Blood Pressure Location Left Arm Right Arm Blood Pressure Location [BP] Right Arm Pulse Ox 93 99 100 Oxygen Delivery Method Nasal Cannula Nasal Cannula Nasal Cannula Oxygen Flow Rate (L/min) 2 2 2 12/25/23 22:00 12/25/23 22:00 12/25/23 20:00 Temperature Temperature Source Pulse Rate 90 Pulse Strength Normal (2+) Respiratory Rate 22 H Respiratory Effort Non-Labored Respiratory Depth Normal Respiratory Pattern Apnea Blood Pressure 181/112 H Blood Pressure [BP] Blood Pressure Mean 135 Blood Pressure Mean [BP] Blood Pressure Source Monitor Blood Pressure Source [BP] Blood Pressure Position Semi-Fowlers Blood Pressure Position [BP] Blood Pressure Location Right Arm Blood Pressure Location [BP] Pulse Ox 99 Oxygen Delivery Method Nasal Cannula Nasal Cannula Oxygen Flow Rate (L/min) 2 12/25/23 23:00 12/26/23 00:00 12/26/23 00:00 Temperature 97.9 F 98 F Temperature Source Temporal Temporal Pulse Rate 83 85 Pulse Strength Respiratory Rate 21 H 21 H Respiratory Effort Non-Labored Respiratory Depth Normal Respiratory Pattern Apnea Blood Pressure 179/116 H 175/111 H Blood Pressure [BP] Blood Pressure Mean 137 132 Blood Pressure Mean [BP] Blood Pressure Source Monitor Blood Pressure Source [BP] Blood Pressure Position Semi-Fowlers Blood Pressure Position [BP] Blood Pressure Location Right Arm Blood Pressure Location [BP] Pulse Ox 98 95 Oxygen Delivery Method Nasal Cannula Nasal Cannula Nasal Cannula Oxygen Flow Rate (L/min) 2 2 12/26/23 01:00 12/26/23 01:05 12/26/23 02:00 Temperature Temperature Source Pulse Rate 81 84 96 Pulse Strength Respiratory Rate 22 H 20 H Respiratory Effort Respiratory Depth Respiratory Pattern Blood Pressure 199/122 H 178/118 H Blood Pressure [BP] 199/122 H Blood Pressure Mean 138 Blood Pressure Mean [BP] 147 Blood Pressure Source Monitor Blood Pressure Source [BP] Monitor Blood Pressure Position Semi-Fowlers Blood Pressure Position [BP] Semi-Fowlers Blood Pressure Location Right Arm Blood Pressure Location [BP] Right Arm Pulse Ox 100 97 Oxygen Delivery Method Nasal Cannula Nasal Cannula Oxygen Flow Rate (L/min) 2 2 12/26/23 03:00 12/26/23 05:00 12/26/23 04:00 Temperature 98 F 98 F Temperature Source Temporal Temporal Pulse Rate 94 83 92 Pulse Strength Respiratory Rate 23 H 22 H 16 Respiratory Effort Respiratory Depth Respiratory Pattern Blood Pressure 214/117 H 175/115 H Blood Pressure [BP] 195/113 H Blood Pressure Mean 149 135 Blood Pressure Mean [BP] 140 Blood Pressure Source Monitor Blood Pressure Source [BP] Monitor Blood Pressure Position Semi-Fowlers Blood Pressure Position [BP] Semi-Fowlers Blood Pressure Location Right Arm Blood Pressure Location [BP] Right Arm Pulse Ox 96 95 99 Oxygen Delivery Method Nasal Cannula Nasal Cannula Nasal Cannula Oxygen Flow Rate (L/min) 2 2 2 12/26/23 05:00 12/26/23 04:00 12/26/23 06:00 Temperature Temperature Source Pulse Rate 93 83 Pulse Strength Respiratory Rate 24 H 22 H Respiratory Effort Non-Labored Respiratory Depth Normal Respiratory Pattern Irregular Blood Pressure 228/131 H Blood Pressure [BP] 214/117 H Blood Pressure Mean 163 Blood Pressure Mean [BP] 149 Blood Pressure Source Monitor Blood Pressure Source [BP] Monitor Blood Pressure Position Semi-Fowlers Blood Pressure Position [BP] Semi-Fowlers Blood Pressure Location Right Arm Blood Pressure Location [BP] Right Arm Pulse Ox 97 96 Oxygen Delivery Method Nasal Cannula Nasal Cannula Nasal Cannula Oxygen Flow Rate (L/min) 1 1 12/26/23 06:21 12/26/23 06:50 12/26/23 08:00 Temperature Temperature Source Pulse Rate 91 Pulse Strength Respiratory Rate Respiratory Effort Non-Labored Short of Breath Respiratory Depth Shallow Respiratory Pattern Tachypnea Blood Pressure 228/131 H Blood Pressure [BP] Blood Pressure Mean Blood Pressure Mean [BP] Blood Pressure Source Blood Pressure Source [BP] Blood Pressure Position Blood Pressure Position [BP] Blood Pressure Location Blood Pressure Location [BP] Pulse Ox 100 Oxygen Delivery Method Nasal Cannula Nasal Cannula Oxygen Flow Rate (L/min) 1 1 12/26/23 08:33 12/26/23 08:44 12/26/23 08:55 Temperature Temperature Source Pulse Rate 105 H 108 H 109 H Pulse Strength Respiratory Rate 20 H 18 20 H Respiratory Effort Respiratory Depth Respiratory Pattern Blood Pressure 176/117 H 183/115 H 188/114 H Blood Pressure [BP] Blood Pressure Mean 136 137 138 Blood Pressure Mean [BP] Blood Pressure Source Monitor Monitor Monitor Blood Pressure Source [BP] Blood Pressure Position Supine Supine Supine Blood Pressure Position [BP] Blood Pressure Location Right Arm Right Arm Right Arm Blood Pressure Location [BP] Pulse Ox 91 93 93 Oxygen Delivery Method Nasal Cannula Nasal Cannula Nasal Cannula Oxygen Flow Rate (L/min) 1 2 2 12/26/23 09:05 12/26/23 07:00 12/26/23 08:00 Temperature 97.4 F L Temperature Source Temporal Pulse Rate 109 H 106 H 102 H Pulse Strength Respiratory Rate 20 H 24 H 28 H Respiratory Effort Respiratory Depth Respiratory Pattern Blood Pressure 202/117 H 204/120 H Blood Pressure [BP] 195/120 H Blood Pressure Mean 145 148 Blood Pressure Mean [BP] 145 Blood Pressure Source Monitor Monitor Blood Pressure Source [BP] Monitor Blood Pressure Position Supine Semi-Fowlers Blood Pressure Position [BP] Semi-Fowlers Blood Pressure Location Right Arm Right Arm Blood Pressure Location [BP] Right Arm Pulse Ox 93 99 98 Oxygen Delivery Method Nasal Cannula Nasal Cannula Nasal Cannula Oxygen Flow Rate (L/min) 2 1 1 12/26/23 09:15 12/26/23 10:00 12/26/23 11:00 Temperature 97.4 F L Temperature Source Temporal Pulse Rate 105 H 103 H 103 H Pulse Strength Respiratory Rate 24 H 22 H 23 H Respiratory Effort Respiratory Depth Respiratory Pattern Blood Pressure 214/109 H 212/131 H Blood Pressure [BP] 199/121 H Blood Pressure Mean 144 158 Blood Pressure Mean [BP] 147 Blood Pressure Source Monitor Blood Pressure Source [BP] Monitor Blood Pressure Position Semi-Fowlers Blood Pressure Position [BP] Semi-Fowlers Blood Pressure Location Right Arm Blood Pressure Location [BP] Right Arm Pulse Ox 97 93 93 Oxygen Delivery Method Nasal Cannula Room Air Room Air Oxygen Flow Rate (L/min) 1 12/26/23 11:12 12/26/23 12:00 12/26/23 12:00 Temperature 97.4 F L Temperature Source Temporal Pulse Rate 88 83 Pulse Strength Respiratory Rate 23 H Respiratory Effort Non-Labored Short of Breath Respiratory Depth Shallow Respiratory Pattern Tachypnea Blood Pressure 147/95 H Blood Pressure [BP] 154/104 H Blood Pressure Mean 112 Blood Pressure Mean [BP] 120 Blood Pressure Source Monitor Blood Pressure Source [BP] Monitor Blood Pressure Position Sitting Blood Pressure Position [BP] Semi-Fowlers Blood Pressure Location Right Arm Blood Pressure Location [BP] Right Arm Pulse Ox 92 Oxygen Delivery Method Room Air Room Air Oxygen Flow Rate (L/min) 12/26/23 13:00 Temperature Temperature Source Pulse Rate 89 Pulse Strength Respiratory Rate 21 H Respiratory Effort Respiratory Depth Respiratory Pattern Blood Pressure Blood Pressure [BP] 156/95 H Blood Pressure Mean Blood Pressure Mean [BP] 115 Blood Pressure Source Blood Pressure Source [BP] Monitor Blood Pressure Position Blood Pressure Position [BP] Sitting Blood Pressure Location Blood Pressure Location [BP] Right Arm Pulse Ox 92 Oxygen Delivery Method Room Air Oxygen Flow Rate (L/min) Weight Weight: 89.5 kg Body Mass Index (BMI) 29.9 NIHSS NIHSS Nursing Documentation NIHSS Nursing Documentation: NIHSS: Ischemic Stroke/TIA Start: 12/25/23 15:58 Text: For ICU Patients: NIH sroke scale at Status: Active presentation and every 2 hours or with change in RN caregiver Freq: [id number] Protocol: Activity Type Activity Date Activity User E-sign Co-sign Detail Recorded Client Recorded Date Recorded By Document 12/26/23 14:00 [facility] Desktop 12/26/23 14:46 [facility] 12/26/23 14:00 NIH Stroke Scale [NIHSS] A score of 0 is normal or asymptomatic . Total possible score is 42. Inpatient: RN or Physician to activate a stroke alert for onset of new stroke symptoms or with NIHSS increase >/= 3 points. Following change in neurological status, NIHSS will be performed per physician order or more frequently PRN. -1a. Level of Consciousness Alert; keenly responsive -1b. LOC Questions Answers BOTH questions correctly. -1c. LOC Commands Performs both tasks correctly . -2. Best Gaze Normal -3. Visual No visual loss -4. Facial Palsy Minor paralysis (flattened nasolabial fold , asymmetry on smiling) -5a. Left Arm No drift; arm holds 90 (or 45 ) degrees for full 10 seconds -5b. Right Arm Some effort against gravity ; -6a. Left Leg No drift; leg holds 30-degree position for full 5 seconds -6b. Right Leg No drift; leg holds 30-degree position for full 5 seconds -7. Limb Ataxia Absent -8. Sensory Mild-to- moderate sensory loss; -9. Best Language Severe aphasia; -10. Dysarthria Severe dysarthria; -11. Extinction and Inattention No abnormality -Total 8 Query Text:A score of 0 is normal or asymptomatic. Total possible score is 42 . ED: Notify Physician for NIHSS increase by > / = 3 points. Inpatient: RN or Physician to activate a stroke alert for NIHSS increase of > / = 3 points. NIHSS 1a. Level of Consciousness: Alert; keenly responsive 1b. LOC Questions: Answers one question correctly. 1c. LOC Commands: Performs both tasks correctly. 2. Best Gaze: Normal 3. Visual: No visual loss 4. Facial Palsy: Partial paralysis (total or near-total paralysis of lower face) 5a. Left Arm: No drift; arm holds 90 (or 45) degrees for full 10 seconds 5b. Right Arm: No effort against gravity; arm falls 6a. Left Leg: No drift; leg holds 30-degree position for full 5 seconds 6b. Right Leg: Some effort against gravity; 7. Limb Ataxia: Absent 8. Sensory: [id number]-[id number] sensory loss; 9. Best Language: [id number] aphasia; 10. Dysarthria: Severe dysarthria; 11. Extinction and Inattention: No abnormality Total: 12 Physical Exam Narrative Patient is awake and alert, follows simple commands, mild aphasia, moderate to severe dysarthria, R facial droop, RUE 2/5, RLE 3/5, full strength on the L side. No ataxia, reduced sensation to LT on the right side Lab / Micro Data 12/25/23 10:18 12/25/23 10:18 Labs: Laboratory Results - last 24 hr 12/26/23 04:10: Triglycerides 342 H, Cholesterol 136, LDL Cholesterol 46, VLDL Cholesterol 68 H, HDL Cholesterol 22 L Imaging Radiology Impression Echocardiogram 12/25/23 15:58 Interpretation Summary The left ventricular ejection fraction is 70 %. Diastolic function is indeterminate. The left atrium is mildly enlarged. Severe mitral annular calcification. Mild diffuse aortic valve calcification. Mild aortic stenosis. Bubble study nondiagnostic for shunts. Ordering Physician: Ozzie Abreu Referring Physician: Jose Ramon Diaz Performed By: Debora Tabor, NEVINCS, RVT Brain MRI 12/26/23 08:50 IMPRESSION: Moderate size acute infarct of the left basal ganglia 1. A moderate size acute infarct is present in the left putamen, subinsular cortex, as well as superior aspect of the caudate nucleus and adjacent periventricular white matter. Electronically Signed: Eleazar Campbell MD at 9:44 EDT , ADDENDUM: 12/26/23 1011 IMPRESSION: Moderate size acute infarct of the left basal ganglia 1. A moderate size acute infarct is present in the left putamen, subinsular cortex, as well as superior aspect of the caudate nucleus and adjacent periventricular white matter. N.B. : The above Results were Read Back by Eleazar Campbell MD to caroline Vargas RN, and understanding confirmed on 12/26/2023 10:04:37 (ET). Electronically Signed: Eleazar Campbell MD at 9:44 EDT , Active Medications Active Medications Active Medications: Current Medications Generic Name Dose Route Start Last Admin Trade Name Freq PRN Reason Stop Dose Admin Aspirin 300 mg 12/26/23 13:00 12/26/23 14:33 Aspirin 300 Mg Suppository RC 300 mg DAILY BERTHA Administration Atorvastatin Calcium 80 mg 12/25/23 22:00 12/25/23 21:32 Atorvastatin Calcium 80 Mg Tablet PO Not Given QHS BERTHA Atropine Sulfate 2 drp 12/25/23 20:28 12/25/23 21:00 Atropine Sulfate 1% 2 Ml Bottle PO 2 drp Q3H PRN PRN Administration CONGESTION Calamine/Phenol 1 applic 12/25/23 22:00 12/26/23 14:35 Menthol/Lanolin/Calamine/Znox 113 Gm Tube TOPICAL 1 applic TID BERTHA Administration Protocol Dextrose 0 gm 12/26/23 12:01 Dextrose 50%-Water 25 Gm/50 Ml Disp.Syrin IV X1 PRN Hypoglycemia Protocol Glucagon 1 mg 12/26/23 12:01 Glucagon 1 Mg/Ml Syringe IM X1 PRN Hypoglycemia Hydralazine HCl 5 mg 12/25/23 15:58 12/26/23 06:21 Hydralazine 20 Mg/Ml Vial IV 5 mg Q30M PRN Administration to maintain BP goals Ampicillin Sodium/Sulbactam 112 mls @ 150 mls/hr 12/25/23 15:58 12/26/23 14:23 Sodium 3 gm/ Sodium Chloride IV Infused Q8 BERTHA Infusion Sodium Chloride 1,000 mls @ 75 mls/hr 12/25/23 15:58 12/26/23 14:14 IV 75 mls/hr .[id number] BERTHA Infusion Sodium Chloride 250 mls @ 15 mls/hr 12/25/23 17:34 IV .[id number] PRN Additional IVPB Infusion Sodium Chloride 250 mls @ 15 mls/hr 12/25/23 17:34 IV .[id number] PRN Saline Flush Insulin Human Lispro 0 unit 12/26/23 18:00 Insulin Lispro 100 Unit/Ml Insuln.Pen SC Q6 BERTHA Protocol Labetalol HCl 10 - 20 mg 12/25/23 15:58 12/26/23 11:05 Labetalol (Prefilled) 20 Mg/4 Ml IV 20 mg Q10M PRN PRN Administration to Maintain BP Goals Sodium Chloride 10 - 40 ml 12/25/23 17:34 0.9% Saline Lock 10 Ml Syringe IV UD PRN SALINE FLUSH
--- NOTE | 2023-12-26 16:12 | CASEMGMT ---
Social Work SW met with pt's brothers Alexander Hubbard and Paramjit Hubbard. Pt's brothers state pt does not have a HCPOA in place. Pt is single with no children. Pt has 6 siblings. Alexander Hubbard, Paramjit Hubbard, Conrad Hubbard, Mandi Nieves, Lety Hubbard, and Estefani Padilla. SW spoke with brothers regarding need for rehab at time of discharge and explained the difference between inpatient rehab and SNF and Medicare coverage. A list of SNF and Rehab unit providers including quality and resource use data and consistent with the patient?s preferred geographic region, medical needs, and insurance network were provided from [facility]. Brothers were unwilling to make decision. Phone call placed to pt Sister Estefani who is contact listed on demographic sheet. SW explained conversation with brothers and discharge planning options. Estefani requesting pt go to [facility] [place] Inpatient Rehab at time of discharge. Referral to be made to [facility]. Scott will speak with family to confirm plan. SW to follow up on Friday. ROCIO Thomason
--- NOTE | 2023-12-26 16:36 | CASEMGMT ---
Social Work Due to expressive aphasia, pt did not complete PHQ9 for stroke. ROCIO Leslie
[2023-12-26 18:03] LABS: Bedside Glucose 112 mg/dL (74-106)
[2023-12-26] MEDS: Insulin Lispro 100 UNIT/ML INSULN.PEN SC (23:57)
[2023-12-27] VITALS (25 sets, daily range): BP systolic 170–233; BP diastolic 94–133; PULSE 85–113; RESP 20–32; TEMP 36.3–37.2; O2SAT 84–96; BMI 27.7
[2023-12-27 03:52] LABS: Bedside Glucose 156 mg/dL (74-106)
[2023-12-27] MEDS: Ampicillin/Sulbactam 3 GM in 0.9% Normal Saline (100mL MB+) 100 ML IV ×3 (04:34→20:30)
[2023-12-27] MEDS: Labetalol (Prefilled) 20 MG/4 ML IV (04:35)
[2023-12-27] MEDS: Menthol/Lanolin/Calamine/Znox 113 GM Tube 1 APPLIC TOPICAL ×3 (04:35→20:30)
[2023-12-27 05:00] LABS: Bedside Glucose 119 mg/dL (74-106)
--- NOTE | 2023-12-27 06:57 | PN.HOSP_ITS ---
Reason for Visit Reason for Visit: Diagnoses Cerebral infarction, unspecified (12/25/23) Subjective Subjective Worse today. Speech unintelligible. More pronounced right-sided weakness. Also increased respiratory rate. Objective Data Objective Data Vital Signs: Vital Signs Temp Pulse Resp BP Pulse Ox O2 Del Method O2 Flow Rate 36.8 C 88 20 H 187/117 H 93 Room Air 1 12/27/23 04:30 12/27/23 04:30 12/27/23 04:30 12/27/23 04:30 12/27/23 04:30 12/27/23 04:30 12/26/23 09:15 Oxygen Flow Rate (L/min) 1 Oxygen Delivery Method Room Air Weight: 83 kg Body Mass Index (BMI) 27.7 Intake & Output: Intake and Output for Last 24 Hours 12/25/23 12/26/23 12/27/23 23:59 23:59 23:59 Intake Total 527.75 / 527.75 1807.25 / 1807.25 533.25 / 533.25 Output Total 475 / 725 650 / 650 Balance 527.75 / 527.75 1332.25 / 1082.25 -116.75 / -116.75 Lab / Micro Data 12/25/23 10:18 12/27/23 12:00 Labs: Laboratory Results - last 24 hr 12/26/23 17:45: POC Glucose 112 H 12/26/23 23:56: POC Glucose 156 H 12/27/23 04:35: POC Glucose 119 H Radiography Diagnostic Testing: Radiology Impression Echocardiogram 12/25/23 15:58 Interpretation Summary The left ventricular ejection fraction is 70 %. Diastolic function is indeterminate. The left atrium is mildly enlarged. Severe mitral annular calcification. Mild diffuse aortic valve calcification. Mild aortic stenosis. Bubble study nondiagnostic for shunts. Ordering Physician: Ozzie Abreu Referring Physician: Jose Ramon Diaz Performed By: Debora Tbaor, NEVINCS, RVT Brain MRI 12/26/23 08:50 IMPRESSION: Moderate size acute infarct of the left basal ganglia 1. A moderate size acute infarct is present in the left putamen, subinsular cortex, as well as superior aspect of the caudate nucleus and adjacent periventricular white matter. Electronically Signed: Eleazar Campbell MD at 9:44 EDT , ADDENDUM: 12/26/23 1011 IMPRESSION: Moderate size acute infarct of the left basal ganglia 1. A moderate size acute infarct is present in the left putamen, subinsular cortex, as well as superior aspect of the caudate nucleus and adjacent periventricular white matter. N.B. : The above Results were Read Back by Eleazar Campbell MD to caroline Vargas RN, and understanding confirmed on 12/26/2023 10:04:37 (ET). Electronically Signed: Eleazar Campbell MD at 9:44 EDT , ADDENDUM: 12/26/23 1455 IMPRESSION: Moderate size acute infarct of the left basal ganglia 1. A moderate size acute infarct is present in the left putamen, subinsular cortex, as well as superior aspect of the caudate nucleus and adjacent periventricular white matter. N.B. : The above Results were Read Back by Eleazar Campbell MD to Alicia Park RN, and understanding confirmed on 12/26/2023 14:48:12 (ET). Electronically Signed: Eleazar Campbell MD at 9:44 EDT , Physical Exam Const Constitutional Narrative: Awake. Speech is comprehensible. Use the board with letters to get the patient to communicates and he was unable to use that to spell out words. Also having patient just shake his had an nod his head for yes/no questions he was not able to even follow those commands. Is overall more confused today. HEENT HEENT Narrative: Right-sided facial weakness. Unable to turn his eyes completely right. Eyes Eyes Narrative: No icterus. Resp Resp Narrative: Coarse breath sounds bilaterally. Cardio regular rate, regular rhythm, S1 normal heart sound and S2 normal heart sound GI normal to inspection, nondistended, normoactive bowel sounds, soft to palpation, non-tender and non-distended Extremity normal to inspection Neuro Neuro Narrative: Muscle strength. 5-5 in left upper and left lower extremity. 0-5 in right upper extremity and 3 out of 5 in the right lower extremity. Assessment & Plan Assessment/Plan (1) Acute CVA (cerebrovascular accident): PLAN: Plan Acute CVA * Atherosclerotic M2 segment of R MCA w possible tiny thrombus and decreased branches of the right sylvian fissure. MRI shows a moderate acute infact of the left BG * Seen by [facility] teleneurology 12/24: did not recommend thrombectomy nor TNK. Recommending to start DAPT w ASA and clopidogrel and statin. * Check echo. Consult PT OT ST. * Last known normal at 2030 on 12/23, found abnormal at 0900 on 12/24 where he was confused and with dysarthria. * While NPO and without current means of administering via NG/GT, continue w rectal ASA. * Neurology recs: DAPT for 90 days, then followed by ASA. HIS with goal LDL <70, 30-day event monitor * Worse on the . Patient had a repeat head CT that showed no changes. Did discuss [facility] neurology, recommended getting a stat CTA of the head neck to evaluate for new LVO. If patient does have an LVO then patient could be transferred to [facility] for potential retrieval. Respiratory distress * No hypoxia * ABG was unremarkable, chest x-ray repeated on the was unremarkable. * CCM on consult. DW physician, recommended repeat labs, UA and UCx. Dysphagia/Dysarthria * 2/2 CVA * NGT unable to be placed. * ST to see. * Cannot rule need for PEG * IVF while NPO. Hypertensive urgency * ongoing post cath * currently NPO given dysphagia. * start enalaprilat scheduled Possible aspiration * found with emesis on face, borderline oxygen at home. * on amp/SB DVT: SCDs Given elevated BP and CVA will maintain ICU status for now. Disposition: TBD. Advance care planning: Spent additional 30 minutes where I spoke with the patient's family at bedside. Patient's sister was there but she is not the power of regulatory attorney, there is been no designated power of regulatory attorney. The patient does not have a nor any children. Did discuss with them about CODE STATUS. Informed her that the patient was full CODE STATUS but told them that if the p atient undergo cardiac arrest that his chance of survival are low but if he were to survive he is still going to have these pronounced neurologic deficits and stated that he will ultimately what would he the patient himself 1 as he is not capable of making any decisions at this time. She said that she was going to talk it over with family and get back to us. Subsequently, the nurse spoke additionally with the family and they have elected to make the patient DNR Comfort Care arrest no intubation. Charges/Coding Visit Charges Inpatient E&M: 49363 Subs Hosp L3 Procedures Hospitalists Procedures: 46789 Advncd Care Plan 30 Min
--- NOTE | 2023-12-27 08:47 | RAD_ITS ---
STUDY: X-RAY CHEST REASON FOR EXAM: Male, 68 years old. sob TECHNIQUE: Single AP portable view of the chest. COMPARISON: December 25, 2023 FINDINGS: The lungs are clear and expanded. There is no demonstrated pleural abnormality. Normal size heart. Normal mediastinum and amy. Normal visualized pulmonary arteries. There is atherosclerotic calcification of the aortic arch with tortuosity. There are diffuse degenerative changes of the visualized thoracic spine. There is degenerative osteoarthritis of the bilateral shoulders. There is no demonstrated abnormality of the visualized soft tissue structures of the upper abdomen. RAD/Chest 1 View (Portable) IMPRESSION: Degenerative changes, as described above. No demonstrated acute cardiopulmonary process. Electronically Signed: Eleazar Campbell MD at 10:51 EDT ,
--- NOTE | 2023-12-27 08:48 | CT_ITS ---
STUDY: CT BRAIN WITHOUT CONTRAST REASON FOR EXAM: Male, 68 years old. change NIHSS stroke score RADIATION DOSAGE (If Supplied By Facility): CTDIvol = ( 44.99 ) mGy, DLP = ( 1625.96 ) mGycm TECHNIQUE: Transaxial CT imaging of the brain was performed without administration of intravenous contrast material. Individualized dose optimization techniques were used for this CT. COMPARISON: MRI of the brain dated December 26, 2023. Head CT dated December 25, 2023 FINDINGS: Redemonstration of moderate acute infarction with diffuse hypodensity of the left subinsular cortex and basal ganglia and overlying periventricular white matter. No interval enlargement of the infarct is demonstrated. There is no evidence of hemorrhagic transformation. No new infarcts are present. Normal soft tissue structures. Normal calvarium. There is mild cerebral atrophy with widening of the extra-axial spaces and ventricular dilatation. There are areas of decreased attenuation within the white matter tracts of the supratentorial brain, consistent with microvascular disease changes. Normal basal ganglia and thalami. Normal brainstem. Normal cerebellum. There is no intracranial hemorrhage. Normal visualized paranasal sinuses. CT/Brain/Head without Contrast IMPRESSION: 1. Redemonstration of moderate acute infarction with diffuse hypodensity of the left subinsular cortex and basal ganglia and overlying periventricular white matter. No interval enlargement of the infarct is demonstrated. There is no evidence of hemorrhagic transformation. No new infarcts are present. Electronically Signed: Eleazar Campbell MD at 10:12 EDT ,
[2023-12-27] MEDS: Enalaprilat 1.25 MG/ML Vial 0.625 MG IV (08:53)
[2023-12-27 10:30] LABS: Allen Test Positive; Base Excess 1 mmol/L (-2 to +2); Bicarbonate 25.7 mmol/L (22-26); Blood Gas Specimen Type ART; Mode Not entered; O2 Delivery Device Cannula; PO2 96 mmHG (75-100); SITE L Radial; SO2 98 % (95-99); Total Carbon Dioxide 27 mmol/L; pCO2 41.1 mmHg (35-45); pH 7.41 (7.35-7.45)
[2023-12-27] MEDS: Ipratropium/Albuterol Sulfate 3 ML AMPUL.NEB INHALATION ×2 (10:49→19:00)
[2023-12-27 12:18] LABS: Absolute Lymphocyte Count 1.23 X10^3/uL (0.83-4.51); Absolute Neutrophil Count 6.8 X10^3/uL (2.0-7.7); Basophil# 0.07 X10^3/uL; Basophil% 0.7 % (0-1); Eosinophil# 0.06 X10^3/uL; Eosinophils% 0.6 % (0-5); Hematocrit 45.6 % (40-54); Hemoglobin 15.8 g/dL (13.0-16.5); Lymphocyte # 1.23 X10^3/ul (0.83-4.51); Mean Corp Hgb Conc 34.6 g/dL (32-36); Mean Corpuscular Hgb 32.8 pg (27.0-32.0); Mean Platelet Vol. 11.6 fl (6.2-12.0); Monocyte# 1.29 X10^3/uL; Monocyte% 13.6 % (0-10); NRBC Flagged by Analyzer 0 % (0-5); Neutrophil # 6.79 X10^3/uL (2.7-7.7); Neutrophil % 71.8 % (47-70); Platelet Count 163 K/mm3 (150-450); RBC Distribution Width CV 13.3 % (11.6-14.6); RBC Distribution Width SD 46.5 fl (35.1-43.9); Red Blood Count 4.82 M/mm3 (4.6-6.2); White Blood Count 9.5 K/mm3 (4.4-11.0)
--- NOTE | 2023-12-27 12:20 | CT_ITS ---
STUDY: CTA HEAD AND NECK WITH CONTRAST REASON FOR EXAM: Male, 68 years old. worsening stroke symptoms. RADIATION DOSAGE (If Supplied By Facility): CTDIvol = ( 21.94 ) mGy, DLP = ( 715.85 ) mGycm TECHNIQUE: CT angiography was performed with a multi-detector CT scanner. Data acquisition was obtained from the skull base through the vertex following intravenous administration of IV 100mL [id number]-370. MIP images were reconstructed from the axial data set. Post-processing of the angiographic images was performed, with multiplanar reformation and 3D reconstruction. Individualized dose optimization techniques were used for this CT. COMPARISON: Head CT dated December 27, 2023 FINDINGS: Normal bilateral petrous carotid arteries. There is calcified plaque formation of the right cavernous carotid artery, without a cross-sectional luminal stenosis. There is calcified plaque formation of the left cavernous carotid artery, without a cross-sectional luminal stenosis. Normal right A1 segments of the anterior cerebral artery. Normal left A1 segments of the anterior cerebral artery. Normal intact anterior communicating artery (ACOM). Normal bilateral A2 segments of the anterior cerebral arteries. Normal right M1 and M2 segments of the middle cerebral arteries, with a normal M1 bifurcation. Normal left M1 and M2 segments of the middle cerebral arteries, with a normal M1 bifurcation. Normal right posterior communicating artery (PCOM). Normal left posterior communicating artery (PCOM). There is a small atretic left vertebral artery with a dominant right vertebral artery. Mild atherosclerotic plaque is present in the middle one third aspect of the intracranial aspect of the right vertebral artery. Normal basilar artery with a normal basilar bifurcation. The visualized bilateral superior cerebellar (SCA) arteries are normal. Normal bilateral P1, P2 and visualized P3 segments of the posterior cerebral arteries. No demonstrated large arterial thrombus or occlusion. There is no demonstrated aneurysm of the [place]. AORTIC ARCH: There is atherosclerotic calcific plaque formation of the aortic arch and great vessels arising from the aortic arch, without a hemodynamically significant stenosis. There is a normal origin of the brachiocephalic, left common carotid, and left subclavian arteries. Normal origins of the brachiocephalic, left common carotid, and left subclavian arteries. Calcified mediastinal lymph nodes are partially visualized. RIGHT CAROTID ARTERIES: Normal right common carotid artery (CCA). There is mild atherosclerotic plaque formation with minimal narrowing of the right carotid bulb. There is mild atherosclerotic plaque formation of the origin of the right internal carotid artery with less than 50% cross sectional diameter stenosis. There is atherosclerotic tortuous elongation of the cervical portion of the right internal carotid artery. Normal origin of the right external carotid artery (ECA). LEFT CAROTID ARTERIES: Normal left common carotid artery (CCA). There is mild atherosclerotic plaque formation with minimal narrowing of the left carotid bulb. There is mild atherosclerotic plaque formation of the origin of the left internal carotid artery with less than 50% cross sectional diameter stenosis. There is atherosclerotic tortuous elongation of the cervical portion of the left internal carotid artery. There is mild atherosclerotic plaque formation of the origin of the left external carotid artery with less than 50% cross sectional diameter stenosis. VERTEBRAL ARTERIES: Normal bilateral vertebral arteries. CT/CTA Head AND Neck W/ Contrast IMPRESSION: 1. Normal [place] without a demonstrated aneurysm or hemodynamically significant stenosis. No demonstrated large arterial thrombus or occlusion. 2. Acute left basal ganglia infarct is result from tiny perforating vessels from the MCA and [employer] 3. Mild atherosclerotic plaque and stenosis of the bilateral internal carotid arteries of the neck Electronically Signed: Eleazar Campbell MD at 14:12 EDT ,
[2023-12-27 12:34] LABS: ALB/GLOB Ratio 1.1 RATIO (0.9-2.4); AST(SGOT) 21 U/L (15-37); Alanine Aminotransfer ALT/SGPT 27 U/L (16-61); Albumin, Serum 3.6 g/dL (3.2-5.0); Alkaline Phosphatase 59 U/L (45-117); Anion Gap 5 (5-15); BUN 18 mg/dL (7-18); BUN/Creat Ratio 22.8 RATIO (10-20); Calcium,Total 8.7 mg/dL (8.5-10.1); Chloride 114 mmol/L (98-107); Creatinine, Serum 0.79 mg/dL (0.70-1.30); EST Glomerular Filtration Rate 104 mL/min (>60); Est Glom Filt Rate - Afr Amer 125 mL/min (>60); Estimated Creatinine Clearance 91.51 ml/min; Globulin 3.4 g/dL (2.2-4.2); Glucose 132 mg/dL (74-106); Potassium 3.6 mmol/L (3.5-5.1); Sodium Level 145 mmol/L (136-145)
--- NOTE | 2023-12-27 12:39 | NEURO.PNOTE ---
Assessment and Plan: Neuro Assessment/Plan Assessment/Plan IMER TORRES is a 68 M with a past medical history of HTN being evaluated by Teleneurology for acute right sided weakness with slurred speech and facial droop. Worsening R sided weakness, more lethargic, partial L gaze preference this am. Patient is also tachypnic Diagnosis: Acute L subcortical ischemic stroke - Stroke etiology is cryptogenic, patient requires ESUS workup up Plan: - CTH obtained this am, evolution of infarct no acute bleed - STAT CTA head and neck to rule out LVO. - Keep permissive HTN for today BP goal <220/120 - Continue dual antiplatelet (ASA and Plavix) for 90 days follow by ASA alone afterward given his ICAD mainly in the R MCA - Continue high intensity atorvastatin - Patient is at very high risk for aspiration and airway loss. Close airway watch - TTE completed with EF of 70%, no embolic source. Recommend KATHERYN +/- LOOP recorder or at least 30 days event monitor when able - PT/OT/ALUMINUM SHINGLE ROOFER evaluation - Stroke education - Vascular risk factors modification - Ok for chemical DVT ppx Plan was discussed over the phone with the primary attending physician. I personally attended this patient and spent a total time of 36 minutes evaluating this patient including clinical assessment, review of chart, medical history imaging, and determining appropriate treatment and workup. Subject: Neurology Subjective IMER TORRES is a 68 year old M, who we are seeing in consultation today for advice on the management of L hemispheric stroke and related patient care. Noted by the bedside nurse at 0830 am today to be more lethargic, SOB with increased in her NIHSS from 10-13, CTH was obtained which showed evolution of the infarct with no acute bleed. Per the bedside nurse, he was more lethargic and apenic later. Family are thinking about CCA vs CC NIHSS NIHSS Nursing Documentation NIHSS Nursing Documentation: NIHSS: Ischemic Stroke/TIA Start: 12/25/23 15:58 Text: For ICU Patients: NIH sroke scale at Status: Active presentation and every 2 hours or with change in RN caregiver Freq: [id number] Protocol: Activity Type Activity Date Activity User E-sign Co-sign Detail Recorded Client Recorded Date Recorded By Document 12/27/23 08:30 [facility] 12/27/23 10:12 [facility] 12/27/23 08:30 NIH Stroke Scale [NIHSS] A score of 0 is normal or asymptomatic . Total possible score is 42. Inpatient: RN or Physician to activate a stroke alert for onset of new stroke symptoms or with NIHSS increase >/= 3 points. Following change in neurological status, NIHSS will be performed per physician order or more frequently PRN. -1a. Level of Consciousness Not alert; -1b. LOC Questions Answers neither question correctly. -1c. LOC Commands Performs both tasks correctly . -2. Best Gaze Normal -3. Visual No visual loss -4. Facial Palsy Partial paralysis ( total or near- total paralysis of lower face) -5a. Left Arm No drift; arm holds 90 (or 45 ) degrees for full 10 seconds -5b. Right Arm No effort against gravity ; arm falls -6a. Left Leg No drift; leg holds 30-degree position for full 5 seconds -6b. Right Leg Drift; leg falls by the end of 5- seconds, but does not hit bed -7. Limb Ataxia Absent -8. Sensory Normal; no sensory loss -9. Best Language Severe aphasia; -10. Dysarthria Severe dysarthria; -11. Extinction and Inattention No abnormality -Total 13 Query Text:A score of 0 is normal or asymptomatic. Total possible score is 42 . ED: Notify Physician for NIHSS increase by > / = 3 points. Inpatient: RN or Physician to activate a stroke alert for NIHSS increase of > / = 3 points. NIHSS 1a. Level of Consciousness: Not alert; 1b. LOC Questions: Answers neither question correctly. 1c. LOC Commands: Performs neither task correctly. 2. Best Gaze: Partial gaze palsy; 3. Visual: No visual loss 4. Facial Palsy: Partial paralysis (total or near-total paralysis of lower face) 5a. Left Arm: No drift; arm holds 90 (or 45) degrees for full 10 seconds 5b. Right Arm: No effort against gravity; arm falls 6a. Left Leg: No drift; leg holds 30-degree position for full 5 seconds 6b. Right Leg: No effort against gravity; leg falls to bed immediately 7. Limb Ataxia: Absent 8. Sensory: [id number]-[id number] sensory loss; 9. Best Language: [id number]-gw-[id number] aphasia; 10. Dysarthria: Severe dysarthria; 11. Extinction and Inattention: No abnormality Total: 18 Objective Data Objective Data Vital Signs: Vital Signs Temp Pulse Resp BP Pulse Ox O2 Del Method O2 Flow Rate 98.0 F 98 22 H 205/120 H 94 Nasal Cannula 4 12/27/23 08:30 12/27/23 10:49 12/27/23 10:49 12/27/23 08:30 12/27/23 10:20 12/27/23 10:20 12/27/23 10:20 Oxygen Flow Rate (L/min) 4 Oxygen Delivery Method Nasal Cannula Weight: 83 kg Body Mass Index (BMI) 27.7 Intake & Output: Intake and Output for Last 24 Hours 12/25/23 12/26/23 12/27/23 23:59 23:59 23:59 Intake Total 527.75 / 527.75 1807.25 / 1807.25 533.25 / 533.25 Output Total 475 / 725 650 / 650 Balance 527.75 / 527.75 1332.25 / 1082.25 -116.75 / -116.75 Lab / Micro Data 12/25/23 10:18 12/27/23 12:00 Labs: Laboratory Results - last 24 hr 12/26/23 17:45: POC Glucose 112 H 12/26/23 23:56: POC Glucose 156 H 12/27/23 04:35: POC Glucose 119 H 12/27/23 12:00: Sodium 145, Potassium 3.6, Chloride 114 H, Carbon Dioxide 26.0, Anion Gap 5, BUN 18, Creatinine 0.79, Estim Creat Clear Calc 91.51, Est GFR (MDRD) Af Amer 125, Est GFR (MDRD) Non-Af 104, BUN/Creatinine Ratio 22.8 H, Glucose 132 H, Calcium 8.7, Total Bilirubin 2.10 H, AST 21, ALT 27, Alkaline Phosphatase 59, Total Protein 7.0, Albumin 3.6, Globulin 3.4, Albumin/Globulin Ratio 1.1 ABG Data ABG results: ABG 12/27/23 10:23 Specimen Type ART Sample Site L Radial pH 7.41 Bicarbonate Actual 25.7 Total CO2 27 Base Excess 1 O2 Saturation 98 O2 % 3.0 ABG pCO2 41.1 ABG pO2 96 Edmundo Test Positive O2 Delivery Device Cannula Vent Mode Not entered Radiography Diagnostic Testing: Radiology Impression Brain MRI 12/26/23 08:50 IMPRESSION: Moderate size acute infarct of the left basal ganglia 1. A moderate size acute infarct is present in the left putamen, subinsular cortex, as well as superior aspect of the caudate nucleus and adjacent periventricular white matter. Electronically Signed: Eleazar Campbell MD at 9:44 EDT , ADDENDUM: 12/26/23 1011 IMPRESSION: Moderate size acute infarct of the left basal ganglia 1. A moderate size acute infarct is present in the left putamen, subinsular cortex, as well as superior aspect of the caudate nucleus and adjacent periventricular white matter. N.B. : The above Results were Read Back by Eleazar Campbell MD to caroline Vargas RN, and understanding confirmed on 12/26/2023 10:04:37 (ET). Electronically Signed: Eleazar Campbell MD at 9:44 EDT , ADDENDUM: 12/26/23 1455 IMPRESSION: Moderate size acute infarct of the left basal ganglia 1. A moderate size acute infarct is present in the left putamen, subinsular cortex, as well as superior aspect of the caudate nucleus and adjacent periventricular white matter. N.B. : The above Results were Read Back by Eleazar Campbell MD to Alicia Park RN, and understanding confirmed on 12/26/2023 14:48:12 (ET). Electronically Signed: Eleazar Campbell MD at 9:44 EDT , Chest X-Ray 12/27/23 08:47 IMPRESSION: Degenerative changes, as described above. No demonstrated acute cardiopulmonary process. Electronically Signed: Eleazar Campbell MD at 10:51 EDT , Brain CT 12/27/23 08:48 IMPRESSION: 1. Redemonstration of moderate acute infarction with diffuse hypodensity of the left subinsular cortex and basal ganglia and overlying periventricular white matter. No interval enlargement of the infarct is demonstrated. There is no evidence of hemorrhagic transformation. No new infarcts are present. Electronically Signed: Eleazar Campbell MD at 10:12 EDT , Physical Exam Narrative Patient is lethargic, severely dysarthric to non verbal, does not follow commands, aphasic, no movement on the right arm/leg, able to keep his L arm/leg up, right facial droop, partial L gaze preference
--- NOTE | 2023-12-27 14:25 | CON.PCM.CC_ITS ---
HPI Consult Data Date of Consult: 12/27/23 HPI Narrative Reason for Consultation: Acute CVA with worsening exam HPI Narrative: 68Y M PMH HTN who initially presented on 12/24 with altered mentation, slurred speech & Rt sided weakness after being found by his family. Unfortunately, out of the window for lytic therapy. Imaging confirmed acute infarct with MRI showing an acute L subcortical hemispheric infarction. I was consulted this afternoon after he was found to have worsening neurologic exam with increased respiratory distress. CT head did not reveal acute changes or hemorrhagic conversion. Pt awake and able to follow commands but he has very poor cough & nearly absent gag response. [facility] Medical History (Updated 12/25/23 @ 17:24 by Golden Hardwick) Hypertension Medical History unable to obtain Home Medications Unobtainable 12/25/23 [History Last Taken Unknown] Allergy/AdvReac Type Severity Reaction Status Date / Time No Known Allergies Allergy Verified 12/25/23 10:40 Family History (Updated 12/25/23 @ 13:[address] Ozzie Abreu MD) Other Diabetes Heart disease Family History unable to obtain Surgical History no surgical history Social History Smoking Status: Unknown if ever smoked ROS ROS Narrative Unable to obtain due to clinical condition Objective Data Objective Data Vital Signs: Vital Signs Last response Temperature 36.7 C 12/27/23 08:30 Temperature Source Temporal 12/27/23 08:30 Pulse Rate 98 12/27/23 10:49 Pulse Strength Weak (1+) 12/26/23 19:44 Respiratory Rate 22 H 12/27/23 10:49 Respiratory Effort Normal, Non-Labored 12/27/23 00:30 Respiratory Depth Normal 12/27/23 00:30 Respiratory Pattern Normal 12/27/23 00:30 Blood Pressure 205/120 H 12/27/23 08:30 Blood Pressure Mean 148 12/27/23 08:30 Blood Pressure Source Monitor 12/27/23 08:30 Blood Pressure Position Semi-Fowlers 12/27/23 08:30 Blood Pressure Location Right Arm 12/27/23 08:30 Pulse Ox 94 12/27/23 10:20 Oxygen Delivery Method Nasal Cannula 12/27/23 10:20 Oxygen Flow Rate (L/min) 4 12/27/23 10:20 I&O: I&O Last 24 Hours 12/26/23 12/27/23 12/27/23 23:59 11:59 23:59 Intake Total 1022.75 / 1807.25 533.25 / 533.25 Output Total 225 / 725 650 / 650 Balance 797.75 / 1082.25 -116.75 / -116.75 I&O: Total Stay 12/25/23 10:29 thru 12/27/23 05:51 Intake Total 2868.25 Output Total 1125 Balance 1743.25 Current Meds Ordered / Administered: Current meds ordered / Administered Generic Name Dose Route Start Last Admin Trade Name Freq PRN Reason Stop Dose Admin Albuterol/Ipratropium 3 ml 12/27/23 10:37 12/27/23 10:49 Ipratropium/Albuterol Sulfate 3 Ml Ampul.Neb INHALATION 3 ml Q4H.RT PRN Administration WHEEZING Aspirin 300 mg 12/26/23 13:00 12/26/23 14:33 Aspirin 300 Mg Suppository RC 300 mg DAILY BERTHA Administration Atorvastatin Calcium 80 mg 12/25/23 22:00 12/26/23 19:43 Atorvastatin Calcium 80 Mg Tablet PO Not Given QHS BERTHA Atropine Sulfate 2 drp 12/25/23 20:28 12/25/23 21:00 Atropine Sulfate 1% 2 Ml Bottle PO 2 drp Q3H PRN PRN Administration CONGESTION Calamine/Phenol 1 applic 12/25/23 22:00 12/27/23 04:35 Menthol/Lanolin/Calamine/Znox 113 Gm Tube TOPICAL 1 applic TID BERTHA Administration Protocol Dextrose 0 gm 12/26/23 12:01 Dextrose 50%-Water 25 Gm/50 Ml Disp.Syrin IV X1 PRN Hypoglycemia Protocol Enalaprilat 0.625 mg 12/27/23 07:00 12/27/23 08:53 Enalaprilat 1.25 Mg/Ml Vial IV 0.625 mg Q6 BERTHA Administration Protocol Glucagon 1 mg 12/26/23 12:01 Glucagon 1 Mg/Ml Syringe IM X1 PRN Hypoglycemia Hydralazine HCl 5 mg 12/25/23 15:58 12/26/23 22:56 Hydralazine 20 Mg/Ml Vial IV 5 mg Q30M PRN Administration to maintain BP goals Ampicillin Sodium/Sulbactam 112 mls @ 150 mls/hr 12/25/23 15:58 12/27/23 05:21 Sodium 3 gm/ Sodium Chloride IV Infused Q8 BERTHA Infusion Sodium Chloride 1,000 mls @ 75 mls/hr 12/25/23 15:58 12/27/23 05:21 IV 75 mls/hr .[id number] BERTHA Infusion Sodium Chloride 250 mls @ 15 mls/hr 12/25/23 17:34 IV .[id number] PRN Additional IVPB Infusion Sodium Chloride 250 mls @ 15 mls/hr 12/25/23 17:34 IV .[id number] PRN Saline Flush Insulin Human Lispro 0 unit 12/26/23 18:00 12/27/23 04:36 Insulin Lispro 100 Unit/Ml Insuln.Pen SC Not Given Q6 BERTHA Protocol Labetalol HCl 10 - 20 mg 12/25/23 15:58 12/27/23 04:35 Labetalol (Prefilled) 20 Mg/4 Ml IV 20 mg Q10M PRN PRN Administration to Maintain BP Goals Sodium Chloride 10 - 40 ml 12/25/23 17:34 0.9% Saline Lock 10 Ml Syringe IV UD PRN SALINE FLUSH Lab / Micro Data 12/25/23 10:18 12/27/23 12:00 Labs: Laboratory Results - last 24 hr 12/26/23 17:45: POC Glucose 112 H 12/26/23 23:56: POC Glucose 156 H 12/27/23 04:35: POC Glucose 119 H 12/27/23 12:00: Sodium 145, Potassium 3.6, Chloride 114 H, Carbon Dioxide 26.0, Anion Gap 5, BUN 18, Creatinine 0.79, Estim Creat Clear Calc 91.51, Est GFR (MDRD) Af Amer 125, Est GFR (MDRD) Non-Af 104, BUN/Creatinine Ratio 22.8 H, Glucose 132 H, Calcium 8.7, Total Bilirubin 2.10 H, AST 21, ALT 27, Alkaline Phosphatase 59, Total Protein 7.0, Albumin 3.6, Globulin 3.4, Albumin/Globulin Ratio 1.1 ABG Data ABG results: ABG 12/27/23 10:23 Specimen Type ART Sample Site L Radial pH 7.41 Bicarbonate Actual 25.7 Total CO2 27 Base Excess 1 O2 Saturation 98 O2 % 3.0 ABG pCO2 41.1 ABG pO2 96 Edmundo Test Positive O2 Delivery Device Cannula Vent Mode Not entered Imaging Radiology Impression Brain MRI 12/26/23 08:50 IMPRESSION: Moderate size acute infarct of the left basal ganglia 1. A moderate size acute infarct is present in the left putamen, subinsular cortex, as well as superior aspect of the caudate nucleus and adjacent periventricular white matter. Electronically Signed: Eleazar Campbell MD at 9:44 EDT , ADDENDUM: 12/26/23 1011 IMPRESSION: Moderate size acute infarct of the left basal ganglia 1. A moderate size acute infarct is present in the left putamen, subinsular cortex, as well as superior aspect of the caudate nucleus and adjacent periventricular white matter. N.B. : The above Results were Read Back by Eleazar Campbell MD to caroline Vargas RN, and understanding confirmed on 12/26/2023 10:04:37 (ET). Electronically Signed: Eleazar Campbell MD at 9:44 EDT , ADDENDUM: 12/26/23 1455 IMPRESSION: Moderate size acute infarct of the left basal ganglia 1. A moderate size acute infarct is present in the left putamen, subinsular cortex, as well as superior aspect of the caudate nucleus and adjacent periventricular white matter. N.B. : The above Results were Read Back by Eleazar Campbell MD to Alicia Park RN, and understanding confirmed on 12/26/2023 14:48:12 (ET). Electronically Signed: Eleazar Campbell MD at 9:44 EDT , Chest X-Ray 12/27/23 08:47 IMPRESSION: Degenerative changes, as described above. No demonstrated acute cardiopulmonary process. Electronically Signed: Eleazar Campbell MD at 10:51 EDT , Brain CT 12/27/23 08:48 IMPRESSION: 1. Redemonstration of moderate acute infarction with diffuse hypodensity of the left subinsular cortex and basal ganglia and overlying periventricular white matter. No interval enlargement of the infarct is demonstrated. There is no evidence of hemorrhagic transformation. No new infarcts are present. Electronically Signed: Eleazar Campbell MD at 10:12 EDT , Head/Neck CTA 12/27/23 12:20 IMPRESSION: 1. Normal [place] without a demonstrated aneurysm or hemodynamically significant stenosis. No demonstrated large arterial thrombus or occlusion. 2. Acute left basal ganglia infarct is result from tiny perforating vessels from the MCA and PHOTOGRAPHIC SPECIALIST 3. Mild atherosclerotic plaque and stenosis of the bilateral internal carotid arteries of the neck Electronically Signed: Eleazar Campbell MD at 14:12 EDT , Assessment and Plan . Assessment and plan: PE: General: Well developed, acutely ill male in mild resp distress HEENT: anicteric Sclera; nl nose; supple neck, no masses Cardiovascular: S1/S2; No rubs, gallops; no displaced PMI Respiratory: diminished bases; no crackles, wheezes, or rhonchi; +accessory muscle use/tachypnea Abdominal: Non-tender; Non distended; hypoBS x 4; No Hepatosplenomegaly Extremities: Warm, well perfused; No clubbing, cyanosis; capillary refill < 2 sec Neurological: awake and follows commands; dysarthric and with Rt sided weakness but able to hold RLE against gravity; nearly absent cough/gag reflex A/P: #Acute respiratory distress #Acute CVA with Rt sided deficits, dysarthria & dysphagia #HTN urgency -CXR/ABG reviewed and no sig issues noted; CT head with no acute changes --> ? acute aspiration event vs sepsis vs other acute toxic/metabolic insult; overall resp status seems to be slowly stabilizing with RR now in 20s from 40s & he is oxygenating well but main concern is his inability to protect airway and manage secretions; recommendation made for intubation but code status is now DNR/DNI so will cont supportive care with Mucomyst/Nebs and hope for improvement in his und erlying neuro exam -F/U labs, UA to look for toxic/metabolic reasons for acute decline in his neuro status; additional evaluation per neuro -Permissive HTN; ASA/statin -PT/OT/ST when appropriate NPO SCDs Poor overall prognosis; updated sister who is at bedside & discussed in detail with consulting provider DNR/DNI Critical Care Time: 60 min The entirety of this encounter was done via Telemedicine
[2023-12-27 14:35] LABS: Mean Corpuscular Volume 94.6 fL (80-94)
[2023-12-27 15:26] LABS: Bedside Glucose 111 mg/dL (74-106)
[2023-12-27] MEDS: 0.9% Normal Saline (1000mL) 1,000 ML 75 ML IV (15:57)
[2023-12-27] MEDS: Aspirin 300 MG Suppository RC (15:57)
[2023-12-27] MEDS: 0.9% Saline Lock 10 ML Syringe IV (16:31)
[2023-12-27] MEDS: Lidocaine Jelly 2% 20 ML Syringe (URO-JET) 1 APPLIC TOPICAL (16:31)
[2023-12-27] MEDS: hydrALAZINE 20 MG/ML Vial 10 MG IV (17:54)
[2023-12-27 18:37] LABS: Bedside Glucose 109 mg/dL (74-106)
[2023-12-27] MEDS: Acetylcysteine 800 MG/4 ML VIAL.NEB. INHALATION (19:00)
[2023-12-28] VITALS (20 sets, daily range): BP systolic 179–214; BP diastolic 102–142; PULSE 110–120; RESP 20–40; TEMP 36.5–37.2; O2SAT 93–98; BMI 29.0
[2023-12-28] MEDS: hydrALAZINE 20 MG/ML Vial 10 MG IV ×2 (00:07→04:42)
[2023-12-28] MEDS: 0.9% Saline Lock 10 ML Syringe IV ×2 (00:07→04:42)
[2023-12-28 00:11] LABS: Bedside Glucose 115 mg/dL (74-106)
[2023-12-28] MEDS: Acetylcysteine 800 MG/4 ML VIAL.NEB. INHALATION ×2 (01:20→06:59)
[2023-12-28] MEDS: Ipratropium/Albuterol Sulfate 3 ML AMPUL.NEB INHALATION ×2 (01:20→06:59)
[2023-12-28] MEDS: Menthol/Lanolin/Calamine/Znox 113 GM Tube 1 APPLIC TOPICAL (04:41)
[2023-12-28] MEDS: 0.9% Normal Saline (1000mL) 1,000 ML 75 ML IV (04:41)
[2023-12-28] MEDS: Ampicillin/Sulbactam 3 GM in 0.9% Normal Saline (100mL MB+) 100 ML IV (04:42)
[2023-12-28 05:07] LABS: Absolute Lymphocyte Count 1.45 X10^3/uL (0.83-4.51); Absolute Neutrophil Count 6.6 X10^3/uL (2.0-7.7); Basophil# 0.09 X10^3/uL; Basophil% 0.9 % (0-1); Eosinophil# 0.09 X10^3/uL; Eosinophils% 0.9 % (0-5); Hematocrit 47.8 % (40-54); Lymphocyte # 1.45 X10^3/ul (0.83-4.51); Mean Corp Hgb Conc 33.5 g/dL (32-36); Mean Corpuscular Hgb 31.9 pg (27.0-32.0); Mean Corpuscular Volume 95.2 fL (80-94); Mean Platelet Vol. 11.9 fl (6.2-12.0); Monocyte# 1.38 X10^3/uL; Monocyte% 14.3 % (0-10); NRBC Flagged by Analyzer 0 % (0-5); Neutrophil % 68.4 % (47-70); Platelet Count 189 K/mm3 (150-450); RBC Distribution Width CV 13.2 % (11.6-14.6); RBC Distribution Width SD 47.1 fl (35.1-43.9); Red Blood Count 5.02 M/mm3 (4.6-6.2); White Blood Count 9.7 K/mm3 (4.4-11.0)
[2023-12-28 05:18] LABS: Bedside Glucose 128 mg/dL (74-106)
[2023-12-28 05:20] LABS: Anion Gap 7 (5-15); BUN 18 mg/dL (7-18); BUN/Creat Ratio 24.7 RATIO (10-20); Calcium,Total 8.9 mg/dL (8.5-10.1); Chloride 114 mmol/L (98-107); Creatinine, Serum 0.73 mg/dL (0.70-1.30); EST Glomerular Filtration Rate 113 mL/min (>60); Est Glom Filt Rate - Afr Amer 137 mL/min (>60); Estimated Creatinine Clearance 93.48 ml/min; Glucose 129 mg/dL (74-106); Potassium 3.5 mmol/L (3.5-5.1); Sodium Level 146 mmol/L (136-145)
[2023-12-28 06:56] LABS: Bacteria 0 SEEN /hpf (None Seen); Mucous, Urine 0 SEEN /hpf (<or=2+); Red Blood Cells-Urine 0 SEEN /hpf (0-5); Squamous Epithelial Cells - UA 0 SEEN /hpf (0-5); White Blood Cells 0 SEEN /hpf (0-5)
--- NOTE | 2023-12-28 06:59 | PN.HOSP_ITS ---
Reason for Visit Reason for Visit: Diagnoses Cerebral infarction, unspecified (12/25/23) Subjective Subjective Patient has remained tachypneic and confused. Nursing said she worked with him in regards to the NAH and asked him to pick out a chair and pick the right answer only 1 out of the 7 times. Objective Data Objective Data Vital Signs: Vital Signs Temp Pulse Resp BP Pulse Ox O2 Del Method O2 Flow Rate 37.0 C 116 H 24 H 193/110 H 98 Nasal Cannula 4 12/28/23 05:00 12/28/23 06:00 12/28/23 06:00 12/28/23 06:00 12/28/23 06:00 12/28/23 06:00 12/28/23 06:00 Oxygen Flow Rate (L/min) 4 Oxygen Delivery Method Nasal Cannula Weight: 87 kg Body Mass Index (BMI) 29.0 Intake & Output: Intake and Output for Last 24 Hours 12/26/23 12/27/23 12/28/23 23:59 23:59 23:59 Intake Total 1807.25 / 1807.25 1336.00 / 1336.00 1067 / 1067 Output Total 475 / 725 1800 / 1800 220 / 220 Balance 1332.25 / 1082.25 -464.00 / -464.00 847 / 847 Lab / Micro Data 12/28/23 04:49 12/28/23 04:49 Labs: Laboratory Results - last 24 hr 12/27/23 12:00: WBC 9.5, RBC 4.82, Hgb 15.8, Hct 45.6, MCV 94.6 H D, MCH 32.8 H, MCHC 34.6, RDW Std Deviation 46.5 H, RDW Coeff of Venessa 13.3, Plt Count 163, MPV 11.6, Immature Gran % (Auto) 0.300, Neut % (Auto) 71.8 H, Lymph % (Auto) 13.0 L, [place] % (Auto) 13.6 H, Eos % (Auto) 0.6, Baso % (Auto) 0.7, Absolute Neuts (auto) 6.8, Absolute Lymphs (auto) 1.23, Nucleated RBC % 0, Sodium 145, Potassium 3.6, Chloride 114 H, Carbon Dioxide 26.0, Anion Gap 5, BUN 18, Creatinine 0.79, Estim Creat Clear Calc 91.51, Est GFR (MDRD) Af Amer 125, Est GFR (MDRD) Non-Af 104, BUN/Creatinine Ratio 22.8 H, Glucose 132 H, Calcium 8.7, Total Bilirubin 2.10 H, AST 21, ALT 27, Alkaline Phosphatase 59, Total Protein 7.0, Albumin 3.6, Globulin 3.4, Albumin/Globulin Ratio 1.1 12/27/23 13:03: POC Glucose 111 H 12/27/23 18:19: POC Glucose 109 H 12/27/23 23:51: POC Glucose 115 H 12/28/23 04:49: WBC 9.7, RBC 5.02, Hgb 16.0, Hct 47.8, MCV 95.2 H, MCH 31.9, MCHC 33.5, RDW Std Deviation 47.1 H, RDW Coeff of Venessa 13.2, Plt Count 189, MPV 11.9, Immature Gran % (Auto) 0.500, Neut % (Auto) 68.4, Lymph % (Auto) 15.0 L, [place] % (Auto) 14.3 H, Eos % (Auto) 0.9, Baso % (Auto) 0.9, Absolute Neuts (auto) 6.6, Absolute Lymphs (auto) 1.45, Nucleated RBC % 0, Sodium 146 H, Potassium 3.5, Chloride 114 H, Carbon Dioxide 25.0, Anion Gap 7, BUN 18, Creatinine 0.73, Estim Creat Clear Calc 93.48, Est GFR (MDRD) Af Amer 137, Est GFR (MDRD) Non-Af 113, BUN/Creatinine Ratio 24.7 H, Glucose 129 H, Calcium 8.9 12/28/23 04:59: POC Glucose 128 H ABG Data ABG results: ABG 12/27/23 10:23 Specimen Type ART Sample Site L Radial pH 7.41 Bicarbonate Actual 25.7 Total CO2 27 Base Excess 1 O2 Saturation 98 O2 % 3.0 ABG pCO2 41.1 ABG pO2 96 Edmundo Test Positive O2 Delivery Device Cannula Vent Mode Not entered Radiography Diagnostic Testing: Radiology Impression Chest X-Ray 12/27/23 08:47 IMPRESSION: Degenerative changes, as described above. No demonstrated acute cardiopulmonary process. Electronically Signed: Eleazar Campbell MD at 10:51 EDT , Brain CT 12/27/23 08:48 IMPRESSION: 1. Redemonstration of moderate acute infarction with diffuse hypodensity of the left subinsular cortex and basal ganglia and overlying periventricular white matter. No interval enlargement of the infarct is demonstrated. There is no evidence of hemorrhagic transformation. No new infarcts are present. Electronically Signed: Eleazar Campbell MD at 10:12 EDT , Head/Neck CTA 12/27/23 12:20 IMPRESSION: 1. Normal [place] without a demonstrated aneurysm or hemodynamically significant stenosis. No demonstrated large arterial thrombus or occlusion. 2. Acute left basal ganglia infarct is result from tiny perforating vessels from the MCA and RESOURCE DIRECTOR 3. Mild atherosclerotic plaque and stenosis of the bilateral internal carotid arteries of the neck Electronically Signed: Eleazar Campbell MD at 14:12 EDT , Physical Exam Const Constitutional Narrative: Patient is awake. Course respiratory sounds audible without auscultation. Tachypnea. Respiratory distress. HEENT head/scalp atraumatic and moist oral mucous membranes HEENT Narrative: Right facial droop Psych affect normal Assessment & Plan Assessment/Plan (1) Acute CVA (cerebrovascular accident): PLAN: Plan Acute CVA * Atherosclerotic M2 segment of R MCA w possible tiny thrombus and decreased branches of the right sylvian fissure. MRI shows a moderate acute infact of the left BG * Seen by [facility] teleneurology 12/24: did not recommend thrombectomy nor TNK. Re commending to start DAPT w ASA and clopidogrel and statin. * Check echo. Consult PT OT ST. * Last known normal at 2030 on 12/23, found abnormal at 0900 on 12/24 where he was confused and with dysarthria. * While NPO and without current means of administering via NG/GT, continue w rectal ASA. * Neurology recs: DAPT for 90 days, then followed by ASA. HIS with goal LDL <70, 30-day event monitor * Worse on the . Patient had a repeat head CT that showed no changes. CTA same day showed no LVO. Respiratory distress * No hypoxia * ABG was unremarkable, chest x-ray repeated on the was unremarkable. * CCM on consult. DW physician, recommended repeat labs, UA and UCx. Dysphagia/Dysarthria * 2/2 CVA * NGT unable to be placed on admission and 12/26. * ST to see. * Cannot rule need for PEG * IVF while NPO. Hypertensive urgency * ongoing post cath * currently NPO given dysphagia. * start enalaprilat scheduled Possible aspiration * found with emesis on face * on amp/SB DVT: SCDs Given elevated BP and CVA will maintain ICU status for now. Disposition: TBD. 12/26: I spoke with the patient's family at bedside. Patient's sister was there but she is not the power of trademark attorney, there is been no designated power of trademark attorney. The patient does not have a nor any children. Did discuss with them about CODE STATUS. Informed her that the patient was full CODE STATUS but told them that if the patient undergo cardiac arrest that his chance of survival are low but if he were to survive he is still going to have these pronounced neurologic deficits and stated that he will ultimately what would he the patient himself 1 as he is not capable of making any decisions at this time. She said that she was going to talk it over with family and get back to us. Subsequently, the nurse spoke additionally with the family and they have elected to make the patient DNR Comfort Care arrest no intubation. 12/27: Discussing with the patient's nurse, as well as the remote supervisor abattoir, conversation was held with the patient's sisters about his poor prognosis and decision to recommend aggressive measures such as intubation with tracheostomy and PEG tube versus comfort measures. The sisters wish to discuss further with family members. They discussed among some cells and notified nursing that they want to proceed with comfort measures and comfort care. So plan is to initiate the comfort measures with morphine, lorazepam, haloperidol as well as other adjunctive agents to help this patient. May need to escalate depending on the patient's symptoms if necessary. Patient status and change consultant to MedSurg. If patient seems to fare well over the night, then may need to consult hospice to see if patient be a candidate for the hospice care unit. With the patient's tachypnea do not feel that this is going be sustainable long-term and his I think would be imminent within the next 12 to 48 hours. Greater than 55 minutes of which greater than 50% time was counseling the patient's family at bedside about care options but also discussing hospice and comfort measures. Charges/Coding Visit Charges Inpatient E&M: 60506 Subs Hosp L3
[2023-12-28 07:50] LABS: Color, Urine Yellow (Yellow); Glucose, Dipstick Normal (Normal); Ketone-Dipstick 50 mg/dl (Negative); Leukocyte Esterase-Dipstick 25 /ul (Negative); Nitrite-Dipstick Positive (Negative); Occult Blood-Urine Negative /ul (Negative); Protein-Dipstick 30 mg/dl (Negative); Urine Bilirubin Dipstick Negative (Negative); Urine Clarity Clear (Clear); Urine Urobilinogen Normal (Normal)
--- NOTE | 2023-12-28 08:44 | PN.CC_ITS ---
Objective Data Objective Data Vital Signs: Vital Signs Last response Temperature 37.0 C 12/28/23 05:00 Temperature Source Temporal 12/28/23 05:00 Pulse Rate 119 H 12/28/23 07:02 Pulse Strength Normal (2+) 12/27/23 21:04 Respiratory Rate 30 H 12/28/23 07:02 Respiratory Effort Labored, Accessory Muscle Use 12/28/23 04:00 Respiratory Depth Deep 12/28/23 04:00 Respiratory Pattern Tachypnea 12/28/23 04:00 Blood Pressure 206/109 H 12/28/23 07:00 Blood Pressure Mean 141 12/28/23 07:00 Blood Pressure Source Monitor 12/28/23 07:00 Blood Pressure Position Sitting 12/28/23 07:00 Blood Pressure Location Right Arm 12/28/23 07:00 Pulse Ox 93 12/28/23 07:02 Oxygen Delivery Method Nasal Cannula 12/28/23 07:02 Oxygen Flow Rate (L/min) 4 12/28/23 07:02 I&O: I&O Last 24 Hours 12/27/23 12/27/23 12/28/23 11:59 23:59 11:59 Intake Total 533.25 / 1336.00 802.75 / 1336.00 1067 / 1067 Output Total 650 / 1800 1150 / 1800 570 / 570 Balance -116.75 / -464.00 -347.25 / -464.00 497 / 497 I&O: Total Stay 12/25/23 10:29 thru 12/28/23 07:45 Intake Total 4738.00 Output Total 2845 Balance 1893.00 Current Meds Ordered / Administered: Current meds ordered / Administered Generic Name Dose Route Start Last Admin Trade Name Freq PRN Reason Stop Dose Admin Acetylcysteine 800 mg 12/27/23 14:45 12/28/23 06:59 Acetylcysteine 800 Mg/4 Ml Vial.Neb. INHALATION 800 mg Q6H.RT BERTHA Administration Albuterol/Ipratropium 3 ml 12/27/23 14:45 12/28/23 06:59 Ipratropium/Albuterol Sulfate 3 Ml Ampul.Neb INHALATION 3 ml Q6H.RT BERTHA Administration Aspirin 300 mg 12/26/23 13:00 12/27/23 15:57 Aspirin 300 Mg Suppository RC 300 mg DAILY BERTHA Administration Atorvastatin Calcium 80 mg 12/25/23 22:00 12/27/23 19:38 Atorvastatin Calcium 80 Mg Tablet PO Not Given QHS BERTHA Atropine Sulfate 2 drp 12/25/23 20:28 12/25/23 21:00 Atropine Sulfate 1% 2 Ml Bottle PO 2 drp Q3H PRN PRN Administration CONGESTION Calamine/Phenol 1 applic 12/25/23 22:00 12/28/23 04:41 Menthol/Lanolin/Calamine/Znox 113 Gm Tube TOPICAL 1 applic TID BERTHA Administration Protocol Dextrose 0 gm 12/26/23 12:01 Dextrose 50%-Water 25 Gm/50 Ml Disp.Syrin IV X1 PRN Hypoglycemia Protocol Glucagon 1 mg 12/26/23 12:01 Glucagon 1 Mg/Ml Syringe IM X1 PRN Hypoglycemia Hydralazine HCl 10 mg 12/27/23 17:42 12/28/23 04:42 Hydralazine 20 Mg/Ml Vial IV 10 mg Q4H PRN PRN Administration hypertension Protocol Ampicillin Sodium/Sulbactam 112 mls @ 150 mls/hr 12/25/23 15:58 12/28/23 05:3 7 Sodium 3 gm/ Sodium Chloride IV Infused Q8 BERTHA Infusion Sodium Chloride 1,000 mls @ 75 mls/hr 12/25/23 15:58 12/28/23 04:41 IV 75 mls/hr .[id number] BERTHA Administration Sodium Chloride 250 mls @ 15 mls/hr 12/25/23 17:34 IV .[id number] PRN Additional IVPB Infusion Sodium Chloride 250 mls @ 15 mls/hr 12/25/23 17:34 IV .[id number] PRN Saline Flush Insulin Human Lispro 0 unit 12/26/23 18:00 12/28/23 05:00 Insulin Lispro 100 Unit/Ml Insuln.Pen SC Not Given Q6 BERTHA Protocol Sodium Chloride 10 - 40 ml 12/25/23 17:34 12/28/23 04:42 0.9% Saline Lock 10 Ml Syringe IV 20 ml UD PRN Administration SALINE FLUSH Lab / Micro Data 12/28/23 04:49 12/28/23 04:49 Labs: Laboratory Results - last 24 hr 12/27/23 12:00: WBC 9.5, RBC 4.82, Hgb 15.8, Hct 45.6, MCV 94.6 H D, MCH 32.8 H, MCHC 34.6, RDW Std Deviation 46.5 H, RDW Coeff of Venessa 13.3, Plt Count 163, MPV 11.6, Immature Gran % (Auto) 0.300, Neut % (Auto) 71.8 H, Lymph % (Auto) 13.0 L, [place] % (Auto) 13.6 H, Eos % (Auto) 0.6, Baso % (Auto) 0.7, Absolute Neuts (auto) 6.8, Absolute Lymphs (auto) 1.23, Nucleated RBC % 0, Sodium 145, Potassium 3.6, Chloride 114 H, Carbon Dioxide 26.0, Anion Gap 5, BUN 18, Creatinine 0.79, Estim Creat Clear Calc 91.51, Est GFR (MDRD) Af Amer 125, Est GFR (MDRD) Non-Af 104, BUN/Creatinine Ratio 22.8 H, Glucose 132 H, Calcium 8.7, Total Bilirubin 2.10 H, AST 21, ALT 27, Alkaline Phosphatase 59, Total Protein 7.0, Albumin 3.6, Globulin 3.4, Albumin/Globulin Ratio 1.1 12/27/23 13:03: POC Glucose 111 H 12/27/23 18:19: POC Glucose 109 H 12/27/23 23:51: POC Glucose 115 H 12/28/23 04:49: WBC 9.7, RBC 5.02, Hgb 16.0, Hct 47.8, MCV 95.2 H, MCH 31.9, MCHC 33.5, RDW Std Deviation 47.1 H, RDW Coeff of Venessa 13.2, Plt Count 189, MPV 11.9, Immature Gran % (Auto) 0.500, Neut % (Auto) 68.4, Lymph % (Auto) 15.0 L, [place] % (Auto) 14.3 H, Eos % (Auto) 0.9, Baso % (Auto) 0.9, Absolute Neuts (auto) 6.6, Absolute Lymphs (auto) 1.45, Nucleated RBC % 0, Sodium 146 H, Potassium 3. 5, Chloride 114 H, Carbon Dioxide 25.0, Anion Gap 7, BUN 18, Creatinine 0.73, Estim Creat Clear Calc 93.48, Est GFR (MDRD) Af Amer 137, Est GFR (MDRD) Non-Af 113, BUN/Creatinine Ratio 24.7 H, Glucose 129 H, Calcium 8.9 12/28/23 04:59: POC Glucose 128 H 12/28/23 06:43: Urine Color Yellow, Urine Clarity Clear, Urine pH 6.0, Ur Specific [place] 1.020, Urine Protein 30 H, Urine Glucose (UA) Normal, Urine Ketones 50 H, Urine Occult Blood Negative, Urine Nitrite Positive H, Urine Bilirubin Negative, Urine Urobilinogen Normal, Ur Leukocyte Esterase 25 H, Urine RBC 0 SEEN, Urine WBC 0 SEEN, Ur Squamous Epith Cells 0 SEEN, Urine Bacteria 0 SEEN, Urine Mucus 0 SEEN ABG Data ABG results: ABG 12/27/23 10:23 Specimen Type ART Sample Site L Radial pH 7.41 Bicarbonate Actual 25.7 Total CO2 27 Base Excess 1 O2 Saturation 98 O2 % 3.0 ABG pCO2 41.1 ABG pO2 96 Edmundo Test Positive O2 Delivery Device Cannula Vent Mode Not entered Imaging Radiology Impression Chest X-Ray 12/27/23 08:47 IMPRESSION: Degenerative changes, as described above. No demonstrated acute cardiopulmonary process. Electronically Signed: Eleazar Campbell MD at 10:51 EDT , Brain CT 12/27/23 08:48 IMPRESSION: 1. Redemonstration of moderate acute infarction with diffuse hypodensity of the left subinsular cortex and basal ganglia and overlying periventricular white matter. No interval enlargement of the infarct is demonstrated. There is no evidence of hemorrhagic transformation. No new infarcts are present. Electronically Signed: Eleazar Campbell MD at 10:12 EDT , Head/Neck CTA 12/27/23 12:20 IMPRESSION: 1. Normal [place] without a demonstrated aneurysm or hemodynamically significant stenosis. No demonstrated large arterial thrombus or occlusion. 2. Acute left basal ganglia infarct is result from tiny perforating vessels from the MCA and PAIN COORDINATOR 3. Mild atherosclerotic plaque and stenosis of the bilateral internal carotid arteries of the neck Electronically Signed: Eleazar Campbell MD at 14:12 EDT , Assessment and Plan . Assessment and plan: Critical Care Time: The entirety of this encounter was done via Telemedicine
[2023-12-28] MEDS: LORazepam 2 MG/ML Bottle 0.5 MG SL (11:12)
[2023-12-28] MEDS: morphine (oral solution) 10MG/0.5ML Syringe 5 MG SL/PO (11:14)
[2023-12-28] MEDS: Atropine Sulfate 1% 2 ml Bottle 2 DRP PO ×2 (11:48→14:51)
[2023-12-28] MEDS: Ketorolac 15 MG/ML Vial IV (11:48)
[2023-12-28] MEDS: Morphine 4 MG/ML Syringe IV (13:24)
[2023-12-28] MEDS: LORazepam 2 MG/ML Syringe IV (13:43)
--- NOTE | 2023-12-28 15:07 | NURSING ---
No heart tones detected at this time by this RN, verified by additional RN as well.
--- NOTE | 2023-12-28 15:30 | NURSING ---
This RN didn't give pt any IVF to pt 1 hour prior to pts .
--- NOTE | 2023-12-28 17:12 | EXP.PCM_ITS ---
Preliminary Cause of Preliminary Cause of Preliminary Cause of : Stroke Date of Admission: 12/25/23 Date of : 12/28/23 (1507) Principle Diagnosis Problem List: Active and Suspected Problems (Updated 12/25/23 @ 17:24 by Golden Hardwick) Acute CVA (cerebrovascular accident) (Acute) Hospital Course PT presented with right sided weakness and dysarthria and dysphagia. He was found to have a left BG infarct. He was a delayed preseentatiion and therefore was not a candidate for TNK. His course was complicated by worsening stroke symptoms. Repeat CT and CTA showed no acute changes. Despite that his respiratory status worsened where he was tachypneic, with resp rate in the 30s- 40s. After several in depth conversations with the patient's family pt was made comfort care. Symptomatic mgmt was ensued and he 12/28/2023 at 1507. Visit Charges Inpatient E&M: 31559 Disch Hosp >30min
== END 2023-12-28 17:34 | DRG 65 ==
LOC: ED 13:41 → ICU 14:05 → PCU 12-28 11:16
PROVIDERS: Admitting Provider Family Medicine; Emergency Provider Emergency Medicine; PCP Family Medicine
DX: I63.311 Cerebral infarction due to thrombosis of right middle cerebral artery (principal); G81.91 Hemiplegia, unspecified affecting right dominant side; T17.818A Gastric contents in other parts of respiratory tract causing other injury, initial encounter; I10 Essential (primary) hypertension; I16.0 Hypertensive urgency; X58.XXXA Exposure to other specified factors, initial encounter; R47.1 Dysarthria and anarthria; R13.10 Dysphagia, unspecified; R29.708 NIHSS score 8; R29.712 NIHSS score 12; R29.810 Facial weakness; R06.03 Acute respiratory distress; Z66 Do not resuscitate
CPT/HCPCS: 36600; 70450; 70496; 70498; 70551; 71045; 74018; 80048; 80053; 80061; 80307; 81001; 82077; 82803; 82962; 84484; 85025; 85610; 85730; 92610; 93005; 93306; 94640; 97163; 97167; 97802; 97803; 99285; J7030; Q9957; Q9967; A4216; C8929; J0295